=== PATIENT | female | born 1935 | race Caucasian/White ===

== ENCOUNTER → 2017-12-29 11:01 | Outpatient (CLI) | payer MEDICARE, OTHER, SELFPAY ==
[2017-12-29 11:22] LABS: Add Manual Diff / Slide Review NO; Basophils Percent Auto 1.1 % (0-2); Eosinophils Percent Auto 0.4 % (2-4); Hematocrit 42.4 % (36-46); Lymphocytes Percent Auto 24.6 % (25-40); Mean Corpuscular Hemoglobin 29.2 PG (26-34); Mean Corpuscular Volume 88.5 fL (80-100); Monocytes Percent Auto 9.9 % (3-14); Neutrophils Absolute Auto 3400 /uL (3000-5900); Platelet Count 152 X10^3/uL (150-400); Red Blood Cell Count 4.79 X10^6/uL (4.0-5.2); Red Cell Distribution Width 15.8 % (11.6-14.8); White Blood Cell Count 5.3 X10^3/uL (4.5-11.0)
[2017-12-29 11:49] LABS: Alanine Aminotransferase 24 IU/L (9-52); Albumin 4.2 g/dL (3.5-5.0); Albumin Globulin Ratio 1.3 (1.0-2.8); Alkaline Phosphatase 74 U/L (38-126); Aspartate Aminotransferase 16 IU/L (14-36); BUN Creatinine Ratio 22.5 (6-22); Bilirubin Total 1.5 mg/dL (0.2-1.3); Blood Urea Nitrogen 18 mg/dL (7-17); Calcium 9.6 mg/dL (8.4-10.2); Carbon Dioxide 30 mmol/L (22-32); Chloride 101 mmol/L (98-107); Estimated Glomerular Filt Rate > 60.0 mL/min (>60); Globulin 3.3 g/dL (1.7-4.1); Glucose 96 mg/dL (80-110); HEMOLYSIS < 15 (0-50); Potassium 3.7 mmol/L (3.4-5.1); Sodium 143 mmol/L (137-145); Total Protein 7.5 g/dL (6.3-8.2)
[2017-12-29 12:20] LABS: HEMOLYSIS < 15 (0-50); Iron 31 ug/dL (37-170)
[2017-12-29 12:31] LABS: Percent Iron Saturation 8 % (15-50); Total Iron Binding Capacity 368 ug/dL (265-497); Transferrin 289 mg/dL (206-381)
== END ==
PROVIDERS: PCP Family Medicine; Visit Provider Nurse Practitioner Gerontology
DX: D45 Polycythemia vera (principal)
CPT/HCPCS: 36415; 80053; 83540; 83550; 85025

== ENCOUNTER → 2018-04-15 12:59 | Outpatient (CLI) | payer MEDICARE, OTHER, SELFPAY ==
[2018-04-15 13:35] LABS: Add Manual Diff / Slide Review NO; Basophils Percent Auto 0.7 % (0-2); Eosinophils Percent Auto 0.3 % (2-4); Hematocrit 44.2 % (36-46); Hemoglobin 14.6 g/dL (12.0-16.0); Lymphocytes Percent Auto 34.4 % (25-40); Mean Corpuscular HGB Conc 32.9 % (30-36); Mean Corpuscular Hemoglobin 31.7 PG (26-34); Mean Corpuscular Volume 96.4 fL (80-100); Monocytes Percent Auto 8.2 % (3-14); Neutrophils Absolute Auto 2600 /uL (3000-5900); Neutrophils Percent Auto 56.4 % (50-75); Platelet Count 203 X10^3/uL (150-400); Red Blood Cell Count 4.59 X10^6/uL (4.0-5.2); Red Cell Distribution Width 14.6 % (11.6-14.8); White Blood Cell Count 4.7 X10^3/uL (4.5-11.0)
[2018-04-15 14:01] LABS: HEMOLYSIS < 15 (0-50); Iron 77 ug/dL (37-170)
[2018-04-15 14:03] LABS: Alanine Aminotransferase 26 IU/L (9-52); Albumin 4.5 g/dL (3.5-5.0); Albumin Globulin Ratio 1.7 (1.0-2.8); Alkaline Phosphatase 64 U/L (38-126); Aspartate Aminotransferase 22 IU/L (14-36); BUN Creatinine Ratio 27.5 (6-22); Bilirubin Total 1.6 mg/dL (0.2-1.3); Blood Urea Nitrogen 22 mg/dL (7-17); Calcium 9.6 mg/dL (8.4-10.2); Carbon Dioxide 27 mmol/L (22-32); Chloride 103 mmol/L (98-107); Estimated Glomerular Filt Rate > 60.0 mL/min (>60); Globulin 2.7 g/dL (1.7-4.1); Glucose 108 mg/dL (80-110); HEMOLYSIS < 15 (0-50); Potassium 4.1 mmol/L (3.4-5.1); Sodium 142 mmol/L (137-145); Total Protein 7.2 g/dL (6.3-8.2)
[2018-04-15 14:12] LABS: Percent Iron Saturation 23 % (15-50); Total Iron Binding Capacity 335 ug/dL (265-497); Transferrin 273 mg/dL (206-381)
== END ==
PROVIDERS: PCP Family Medicine; Visit Provider Nurse Practitioner Gerontology
DX: D45 Polycythemia vera (principal)
CPT/HCPCS: 36415; 80053; 83540; 83550; 85025

== ENCOUNTER → 2018-06-18 10:19 | Outpatient (CLI) | payer MEDICARE, OTHER, SELFPAY ==
[2018-06-18 12:23] LABS: Magnesium 2.3 mg/dL (1.6-2.3)
[2018-06-18 12:54] LABS: Free T4, Direct Thyroxine 1.74 ng/dL (0.78-2.19)
[2018-06-18 13:08] LABS: Thyroid Stimulating Hormone 0.66 uIU/mL (0.47-4.68)
[2018-06-18 15:12] LABS: Vitamin D 25 Hydroxy (D3) 29.6 ng/mL (30.0-100.0)
== END ==
PROVIDERS: PCP Student in an Organized Health Care Education/Training Program; Visit Provider Student in an Organized Health Care Education/Training Program
DX: E03.9 Hypothyroidism, unspecified (principal); E55.9 Vitamin D deficiency, unspecified; L65.9 Nonscarring hair loss, unspecified
CPT/HCPCS: 36415; 82306; 83735; 84439; 84443

== ENCOUNTER 2019-01-10 05:52 | Emergency (ER) | payer MEDICARE, OTHER, SELFPAY ==
[2019-01-10] VITALS (17 sets, daily range): BP systolic 105–131; BP diastolic 51–69; PULSE 65–94; RESP 15–25; TEMP 36.8; O2SAT 96–98; BMI 23.0
--- NOTE | 2019-01-10 06:22 | DI.RAD.S_ITS ---
PROCEDURE: XR ACUTE ABDOMEN SERIES INDICATIONS: AB PAIN NO BM FOR 3 DAYS TECHNIQUE: One view chest and two views of the abdomen were acquired. COMPARISON: Former[facility], , CHEST 2 VIEW, 12/09/2013, 15:31. FINDINGS: Surgical changes and devices: None. Chest: Lungs are clear. Heart size is normal. No pleural effusions. No pneumoperitoneum. Abdomen: Bowel gas pattern is normal. No suspicious calcifications. Visualized solid organ contours appear normal. Bones: No suspicious bony lesions. IMPRESSION: No acute cardiopulmonary findings. Dictated by: Aspen Su M.D. on 01/10/2019 at 7:04 Approved by: Aspen Su M.D. on 01/10/2019 at 7:04
--- NOTE | 2019-01-10 06:37 | ED.ABDPAIN ---
HPI - Abdominal Pain <DO Christianne Kumar Last Filed: 01/10/19 19:09> General Chief Complaint: Abdominal Pain Stated Complaint: terrible in abdomen and back, no bm for 2 days Time Seen by Provider: 01/10/19 06:14 Source: patient Mode of arrival: ambulatory Limitations: no limitations History of Present Illness HPI narrative: Patient is an 83-year-old female who presents with abdominal pain and epigastric pain ongoing for the last 3 days but she says now it is improved. She denies any radiation of the pain. She denies any chest pain, shortness of breath or nausea. She says she has not had a bowel movement feeding days she did take some Dulcolax and some magnesium which she actually did have a bowel movement with. She has no fevers no MD complaint: abdominal pain Onset (ago): day(s) (3) Pain Consistency: now resolved Location: epigastric Severity: mild Quality: aching Radiation: none Migration to: no migration Relieving factors: nothing Exacerbating factors: nothing Related Data Home Medications Medication Instructions Recorded Confirmed multivitamin [Multiple Vitamins] 1 tab PO QDAY #0 10/22/16 10/08/18 cholecalciferol (vitamin D3) 1,000 unit PO DAILY 10/08/18 10/08/18 [Vitamin D3] magnesium oxide 400 mg PO QMWF 10/08/18 10/08/18 Previous Rx's Medication Instructions Recorded omeprazole 20 mg PO BIDAC #60 tab 01/14/17 hydroxyurea [Hydrea] 500 mg PO QDAY #30 cap 01/05/18 metoprolol tartrate 25 mg tablet 25 mg PO Q DAY #90 tab 06/18/18 triamterene 37.5 1 tab PO QDAY #90 tab 06/18/18 mg-hydrochlorothiazide 25 mg tablet levothyroxine 0.088 mg PO QDAY #90 tab 08/03/18 hydroxyurea 500 mg PO DAILY #30 cap 10/08/18 Allergies Allergy/AdvReac Type Severity Reaction Status Date / Time morphine [MORPHINE] Allergy Unknown ITCHING Verified 01/10/19 08:51 Review of Systems <DO Christianne Kumar Last Filed: 01/10/19 19:09> Review of Systems GENERAL: Denies chills, fatigue, malaise, fever, sweats, travel HEENT: Denies sinus pain, ear pain, sore throat, difficulty swallowing, neck pain RESPIRATORY: Denies dyspnea, cough, wheezing, hemoptysis, sputum. CARDIOVASCULAR: Denies chest pain, palpitations, orthopnea, edema GASTROINTESTINAL: See HPI : Denies dysuria, frequency, incontinence, hematuria, urinary retention, flank pain. MUSCULOSKELETAL: Denies weakness, joint pain, or bony pain SKIN: No rash, no erythema, no pruritus NEUROLOGIC: Denies weakness, dizziness, headache, numbness, change in speech, confusion PSYCHIATRIC: No concerning psychosocial issues. 12 point review of systems is negative except for those stated above and HPI PFSH <Yazmin Hernandez DO - Last Filed: 01/10/19 19:09> Medical History Allergic rhinitis (Chronic) Bunion, left foot (Chronic) Corns (Chronic) Fibromyalgia (Chronic) Hammertoe of left foot (Chronic) Hearing loss (Chronic) Hyperlipidemia (Chronic) Hypertension (Chronic) Hypothyroidism (Chronic) Osteoarthritis (Chronic) Wears glasses (Chronic) Dizziness (Resolved) Subtrochanteric fracture of right femur (Resolved 04/2012) Syncope and collapse (Resolved) Surgical History History of bilateral inguinal hernia repair (Resolved) History of bone marrow biopsy (Resolved 10/11/16) History of colonoscopy with polypectomy (Resolved 03/18/17) History of endoscopy (Resolved 01/14/17) History of hysterectomy (Resolved) History of orthopedic surgery (Resolved 05/10/12) History of surgery (Resolved) History of tonsillectomy and adenoidectomy (Resolved) Family History Father No problems noted. Mother No problems noted. Social History Smoking Status: Never smoker Family History Father No problems noted. Mother No problems noted. Social History Smoking Status: Never smoker Exam <Yazmin Hernandez DO - Last Filed: 01/10/19 19:09> Initial Vital Signs Initial Vital Signs: Vital Signs Pulse Rate 90 01/10/19 06:00 Respiratory Rate 20 01/10/19 06:00 Blood Pressure 131/60 01/10/19 06:00 Pulse Oximetry 97 01/10/19 06:00 GENERAL: Alert pleasant elderly female no acute distress HEENT: Head atraumatic,EOMI, pupils reactive, face symmetric, moist mucous membranes CARDIOVASCULAR: Regular rate and rhythm without murmurs, rubs or gallops. RESPIRATORY: Breath sounds equal bilaterally, no wheezes rales or rhonchi. ABDOMEN: Soft, minimal tenderness in her epigastric area or right upper quadrant pain. She has some mild tenderness in her lower abdomen but no distention no guarding no rebound no localization. EXTREMITIES: Normal range of motion, no clubbing or edema. Neurovascularly intact NEUROLOGICAL: Alert and oriented x4.Normal gait and speech. Cranial nerves II through XII grossly intact. SKIN: Warm, dry, no laceration, no petechiae, no rashes or lesions. <Hugh Singh DO - Last Filed: 01/10/19 15:06> Initial Vital Signs Initial Vital Signs: Vital Signs Pulse Rate 90 01/10/19 06:00 Respiratory Rate 20 01/10/19 06:00 Blood Pressure 131/60 01/10/19 06:00 Pulse Oximetry 97 01/10/19 06:00 Course <Yazmin Hernandez DO - Last Filed: 01/10/19 19:09> Orders Ordered: ED Orders 01/10/19 11:40 CT abdomen pelvis w con Stat Discontinued Medications Aspirin (Aspirin Chew) 324 mg PO NOW ONE Stop: 01/10/19 06:23 Last Admin: 01/10/19 06:50 Dose: 324 mg Heparin Sodium (Porcine) (Heparin) 4,700 unit 80 unit/kg (4700 unit) IV NOW ONE Stop: 01/10/19 08:46 Last Admin: 01/10/19 08:56 Dose: 4,700 unit Sodium Chloride (Normal Saline 0.9%) 1,000 mls @ 150 mls/hr IV CONT NIRMAL Last Infusion: 01/10/19 12:33 Dose: 0 mls/hr Admin: 01/10/19 06:50 Dose: 150 mls/hr Heparin Sodium/Dextrose (Heparin Drip) 25,000 unit in 500 mls @ 20 mls/hr IV CONT NIRMAL; Protocol Last Titration: 01/10/19 14:21 Dose: 0 units/hr, 0 mls/hr Admin: 01/10/19 12:02 Dose: 1,000 units/hr, 20 mls/hr Vital Signs - 8 hr 01/10/19 11:30 01/10/19 11:54 01/10/19 13:18 Pulse Rate 72 71 70 Respiratory Rate 25 H 20 21 Blood Pressure Blood Pressure [Right Arm] 108/55 L 113/57 L 110/51 L Pulse Oximetry 97 97 98 01/10/19 13:45 01/10/19 14:16 Pulse Rate 70 75 Respiratory Rate 22 18 Blood Pressure 115/54 L Blood Pressure [Right Arm] 105/52 L Pulse Oximetry 96 98 <Hugh Singh DO - Last Filed: 01/10/19 15:06> Course Narrative: Patient received in sign-out from our nighttime physician. I performed an independent exam and history. I have no significant additions to Dr. Hernandez's note. 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 Transfer initiated Orders Ordered: ED Orders 01/10/19 11:40 CT abdomen pelvis w con Stat Discontinued Medications Aspirin (Aspirin Chew) 324 mg PO NOW ONE Stop: 01/10/19 06:23 Last Admin: 01/10/19 06:50 Dose: 324 mg Heparin Sodium (Porcine) (Heparin) 4,700 unit 80 unit/kg (4700 unit) IV NOW ONE Stop: 01/10/19 08:46 Last Admin: 01/10/19 08:56 Dose: 4,700 unit Sodium Chloride (Normal Saline 0.9%) 1,000 mls @ 150 mls/hr IV CONT NIRMAL Last Infusion: 01/10/19 12:33 Dose: 0 mls/hr Admin: 01/10/19 06:50 Dose: 150 mls/hr Heparin Sodium/Dextrose (Heparin Drip) 25,000 unit in 500 mls @ 20 mls/hr IV CONT NIRMAL; Protocol Last Titration: 01/10/19 14:21 Dose: 0 units/hr, 0 mls/hr Admin: 01/10/19 12:02 Dose: 1,000 units/hr, 20 mls/hr Consultations Consultation #1: General surgery (Nain) consulted after we received results of US. Recommends transfer for access to higher level of care 0850 - call to [facility] [place]. No beds 0855 - call to Vascular. Call back at 1145 They are happy with heparin, suggest we talk to general surgery. Recommend CT abd/pelvis 0900 call to general surgery, in OR, will call back. 1205 call back. Happy to play a role, but suggest we speak with hospitalist 1205 - hospitalist happy to accept, pending CT results 1225 - findings relayed to , they accept. Images pushed. Patient and family informed. Questions answered. Vital Signs - 8 hr 01/10/19 11:30 01/10/19 11:54 01/10/19 13:18 Pulse Rate 72 71 70 Respiratory Rate 25 H 20 21 Blood Pressure Blood Pressure [Right Arm] 108/55 L 113/57 L 110/51 L Pulse Oximetry 97 97 98 01/10/19 13:45 01/10/19 14:16 Pulse Rate 70 75 Respiratory Rate 22 18 Blood Pressure 115/54 L Blood Pressure [Right Arm] 105/52 L Pulse Oximetry 96 98 MDM - Abdominal Pain <Yazmin Hernandez DO - Last Filed: 01/10/19 19:09> Lab Data Result diagrams: 01/10/19 06:00 01/10/19 06:00 Lab Results 01/10/19 01/10/19 01/10/19 Range/Units 06:00 06:00 08:50 WBC 11.4 H (4.5-11.0) X10^3/uL RBC 4.37 (4.0-5.2) X10^6/uL Hgb 13.4 (12.0-16.0) g/dL Hct 40.2 (36-46) % MCV 91.9 (80-100) fL MCH 30.6 (26-34) PG MCHC 33.3 (30-36) % RDW 13.9 (11.6-14.8) % Plt Count 181 (150-400) X10^3/uL Neut % (Auto) 71.1 (50-75) % Lymph % (Auto) 13.2 L (25-40) % Bracken % (Auto) 15.0 H (3-14) % Eos % (Auto) 0.3 L (2-4) % Baso % (Auto) 0.4 (0-2) % Neut # (Auto) 8100 H (9919-9233) /uL Lymph # (Auto) 1500 (3218-7331) /uL Bracken # (Auto) 1700 H (0-900) /uL Eos # (Auto) 0 (0-450) /uL Baso # (Auto) 0 (0-100) /uL Plt Morphology Comment RBC Morphology Normal morphology PT (10.1-12.7) SECONDS INR (0.9-1.3) APTT (26.4-36.2) SECONDS Sodium 136 L (137-145) mmol/L Potassium 3.6 (3.4-5.1) mmol/L Chloride 97 L (98-107) mmol/L Carbon Dioxide 28 (22-32) mmol/L BUN 33 H (7-17) mg/dL Creatinine 1.00 (0.52-1.04) mg/dL Estimated GFR 53.1 L (>60) mL/min BUN/Creatinine Ratio 33.0 H (6-22) Glucose 146 H (80-110) mg/dL Lactate 1.0 (0.7-2.1) mmol/L Calcium 10.5 H (8.4-10.2) mg/dL Total Bilirubin 2.5 H (0.2-1.3) mg/dL AST 39 H (14-36) IU/L ALT 39 (9-52) IU/L Alkaline Phosphatase 220 H (38-126) U/L Total Creatine Kinase 31 (30-135) U/L CK-MB (CK-2) TNP CK-MB (CK-2) Rel Index TNP Troponin I < 0.012 (0.01-0.034) ng/mL Total Protein 7.4 (6.3-8.2) g/dL Albumin 4.1 (3.5-5.0) g/dL Globulin 3.3 (1.7-4.1) g/dL Albumin/Globulin Ratio 1.2 (1.0-2.8) Lipase 222 (23-300) U/L 01/10/19 Range/Units 08:50 WBC (4.5-11.0) X10^3/uL RBC (4.0-5.2) X10^6/uL Hgb (12.0-16.0) g/dL Hct (36-46) % MCV (80-100) fL MCH (26-34) PG MCHC (30-36) % RDW (11.6-14.8) % Plt Count (150-400) X10^3/uL Neut % (Auto) (50-75) % Lymph % (Auto) (25-40) % Bracken % (Auto) (3-14) % Eos % (Auto) (2-4) % Baso % (Auto) (0-2) % Neut # (Auto) (7575-5475) /uL Lymph # (Auto) (3712-2486) /uL Bracken # (Auto) (0-900) /uL Eos # (Auto) (0-450) /uL Baso # (Auto) (0-100) /uL Plt Morphology Comment RBC Morphology PT 15.4 H (10.1-12.7) SECONDS INR 1.3 (0.9-1.3) APTT 32 (26.4-36.2) SECONDS Sodium (137-145) mmol/L Potassium (3.4-5.1) mmol/L Chloride (98-107) mmol/L Carbon Dioxide (22-32) mmol/L BUN (7-17) mg/dL Creatinine (0.52-1.04) mg/dL Estimated GFR (>60) mL/min BUN/Creatinine Ratio (6-22) Glucose (80-110) mg/dL Lactate (0.7-2.1) mmol/L Calcium (8.4-10.2) mg/dL Total Bilirubin (0.2-1.3) mg/dL AST (14-36) IU/L ALT (9-52) IU/L Alkaline Phosphatase (38-126) U/L Total Creatine Kinase (30-135) U/L CK-MB (CK-2) CK-MB (CK-2) Rel Index Troponin I (0.01-0.034) ng/mL Total Protein (6.3-8.2) g/dL Albumin (3.5-5.0) g/dL Globulin (1.7-4.1) g/dL Albumin/Globulin Ratio (1.0-2.8) Lipase (23-300) U/L ECG Data Attestation: I personally reviewed and interpreted this ECG as follows: Prior ECG tracings: available for review Interpretation: Sinus rhythm rate 90 to OH interval 149 nonpathologic Q-wave noted in lead 3 no other bleeding noted. Slight ST depression in the [address] elevation <Hugh Singh DO - Last Filed: 01/10/19 15:06> Lab Data Lab Results 01/10/19 01/10/19 01/10/19 Range/Units 06:00 06:00 08:50 WBC 11.4 H (4.5-11.0) X10^3/uL RBC 4.37 (4.0-5.2) X10^6/uL Hgb 13.4 (12.0-16.0) g/dL Hct 40.2 (36-46) % MCV 91.9 (80-100) fL MCH 30.6 (26-34) PG MCHC 33.3 (30-36) % RDW 13.9 (11.6-14.8) % Plt Count 181 (150-400) X10^3/uL Neut % (Auto) 71.1 (50-75) % Lymph % (Auto) 13.2 L (25-40) % Bracken % (Auto) 15.0 H (3-14) % Eos % (Auto) 0.3 L (2-4) % Baso % (Auto) 0.4 (0-2) % Neut # (Auto) 8100 H (8569-2204) /uL Lymph # (Auto) 1500 (1039-6772) /uL Bracken # (Auto) 1700 H (0-900) /uL Eos # (Auto) 0 (0-450) /uL Baso # (Auto) 0 (0-100) /uL Plt Morphology Comment RBC Morphology Normal morphology PT (10.1-12.7) SECONDS INR (0.9-1.3) APTT (26.4-36.2) SECONDS Sodium 136 L (137-145) mmol/L Potassium 3.6 (3.4-5.1) mmol/L Chloride 97 L (98-107) mmol/L Carbon Dioxide 28 (22-32) mmol/L BUN 33 H (7-17) mg/dL Creatinine 1.00 (0.52-1.04) mg/dL Estimated GFR 53.1 L (>60) mL/min BUN/Creatinine Ratio 33.0 H (6-22) Glucose 146 H (80-110) mg/dL Lactate 1.0 (0.7-2.1) mmol/L Calcium 10.5 H (8.4-10.2) mg/dL Total Bilirubin 2.5 H (0.2-1.3) mg/dL AST 39 H (14-36) IU/L ALT 39 (9-52) IU/L Alkaline Phosphatase 220 H (38-126) U/L Total Creatine Kinase 31 (30-135) U/L CK-MB (CK-2) TNP CK-MB (CK-2) Rel Index TNP Troponin I < 0.012 (0.01-0.034) ng/mL Total Protein 7.4 (6.3-8.2) g/dL Albumin 4.1 (3.5-5.0) g/dL Globulin 3.3 (1.7-4.1) g/dL Albumin/Globulin Ratio 1.2 (1.0-2.8) Lipase 222 (23-300) U/L / Range/Units 08:50 WBC (4.5-11.0) X10^3/uL RBC (4.0-5.2) X10^6/uL Hgb (12.0-16.0) g/dL Hct (36-46) % MCV (80-100) fL MCH (26-34) PG MCHC (30-36) % RDW (11.6-14.8) % Plt Count (150-400) X10^3/uL Neut % (Auto) (50-75) % Lymph % (Auto) (25-40) % Bracken % (Auto) (3-14) % Eos % (Auto) (2-4) % Baso % (Auto) (0-2) % Neut # (Auto) (2440-6354) /uL Lymph # (Auto) (2497-7405) /uL Bracken # (Auto) (0-900) /uL Eos # (Auto) (0-450) /uL Baso # (Auto) (0-100) /uL Plt Morphology Comment RBC Morphology PT 15.4 H (10.1-12.7) SECONDS INR 1.3 (0.9-1.3) APTT 32 (26.4-36.2) SECONDS Sodium (137-145) mmol/L Potassium (3.4-5.1) mmol/L Chloride (98-107) mmol/L Carbon Dioxide (22-32) mmol/L BUN (7-17) mg/dL Creatinine (0.52-1.04) mg/dL Estimated GFR (>60) mL/min BUN/Creatinine Ratio (6-22) Glucose (80-110) mg/dL Lactate (0.7-2.1) mmol/L Calcium (8.4-10.2) mg/dL Total Bilirubin (0.2-1.3) mg/dL AST (14-36) IU/L ALT (9-52) IU/L Alkaline Phosphatase (38-126) U/L Total Creatine Kinase (30-135) U/L CK-MB (CK-2) CK-MB (CK-2) Rel Index Troponin I (0.01-0.034) ng/mL Total Protein (6.3-8.2) g/dL Albumin (3.5-5.0) g/dL Globulin (1.7-4.1) g/dL Albumin/Globulin Ratio (1.0-2.8) Lipase (23-300) U/L Imaging Data US - abdomen: My impression: [place] [address] Ultrasound Report Signed Patient: Neena Martell [facility]#: [id number] : 1935cct:[id number] Age/Sex: 83 / FDate of Service: 01/10/19 Loc: ED Accession Number: [id number] Procedure: US abdomen complete Ordering Provider: Hugh Singh D.O. PROCEDURE: US ABDOMEN COMPLETE INDICATIONS: SEVERE EPIGASTRIC PAIN TECHNIQUE: Real-time scanning was performed of the abdominal and retroperitoneal organs, with image documentation. COMPARISON: None. FINDINGS: Liver: Liver is normal in size and homogeneous in echotexture. The central portal vein and the main left and right branches of the portal vein are thrombosed. Gallbladder: The gallbladder wall measures 2.2 mm in diameter. No stones, sludge, pericholecystic fluid, or sonographic Ortega sign. Biliary ducts: Intrahepatic bile ducts are non-dilated. Extrahepatic bile duct caliber measures 5.5 mm. Normal is 6-7 mm or less in diameter, or 10 mm or less post-cholecystectomy. Pancreas: Visualized portions of the pancreas are sonographically normal. Spleen: The spleen measures 13.2 cm in length. Where visualized the splenic vein appears thrombosed. Kidneys: Kidneys are normal in size and echotexture. Right kidney measures 10.0 cm long; left kidney measures 11.5 cm long. No hydronephrosis or nephrolithiasis. No solid masses. Aorta: Visualized aorta is normal in caliber at less than 3 cm. Iliacs: The iliac arteries are not visualized. IVC: Intrahepatic inferior vena cava is patent. Miscellaneous: No free abdominal fluid. IMPRESSION: 1. Portal vein and splenic vein thrombosis. No definite cavernous transformation is visualized suggesting this may be an acute or subacute finding. These findings were discussed with Dr. Singh at 8:05 AM on 01/10/19. 2. No cholelithiasis or findings to suggest choledocholithiasis or acute cholecystitis. Dictated by: Aspen Su M.D. on 01/10/2019 at 7:59 Approved by: Aspen Su M.D. on 01/10/2019 at 8:05 CT scan - abdomen: Radiologist's impression: [place] [address] CT Scan Report Signed Patient: Neena Martell MMR#: [id number] : 6Acct:[id number] Age/Sex: 83 / FDate of Service: 01/10/19 Loc: ED Accession Number: [id number] Procedure: CT abdomen pelvis w con Ordering Provider: Hugh Singh D.O. PROCEDURE: CT ABDOMEN PELVIS W CON INDICATIONS: abdominal pain, per vascular at [facility] TECHNIQUE: After the administration of intravenous contrast, 5 mm thick sections acquired from the diaphragm to the symphysis. 5 mm coronal and sagittal reformats were acquired. For radiation dose reduction, the following was used: automated exposure control, adjustment of mA and/or kV according to patient size. COMPARISON: None. FINDINGS: Image quality: Excellent. ABDOMEN: Lung bases: A 5 mm diameter nodule is present at the right lung base (series 3, image 6). Heart size is normal. Solid organs: The liver demonstrates overall normal size and enhancement. A low density circumscribed lesion is present within the left hepatic lobe which may represent a simple hepatic cyst. The portal vein is enlarged and thrombosed throughout its course. The splenic vein and the SMV are enlarged and thrombosed as well. Subtle enhancement is present along the periphery of the thrombus. Subtle fat stranding is present at the yadira hepatis. The spleen measures 10.5 cm in length. Wedge-shaped hypodensities are present within the spleen suggesting infarct. The pancreas demonstrates normal enhancement. The main pancreatic and accessory pancreatic ducts are prominent and there is mild dilatation of the accessory pancreatic duct up to 6 mm in diameter. The kidneys demonstrate symmetric size and enhancement. No hydronephrosis. No adrenal gland nodules. Peritoneum and bowel: Bowel loops demonstrate normal wall thickness and overall caliber. A large amount stool is present within the rectosigmoid. There are scattered sigmoid diverticula. No evidence for diverticulitis. No free fluid or air. Nodes and vessels: No retroperitoneal or mesenteric adenopathy by size criteria. Aorta and inferior vena cava are normal in size. Dense atheromatous calcification is present throughout the abdominal aorta. Exophytic plaque measuring 6 mm in diameter is present along the posterior aspect of the distal descending thoracic aorta. Miscellaneous: No ventral hernias. PELVIS: Genitourinary: Bladder wall thickness is normal. The uterus and ovaries are not visualized and may be surgically absent. Miscellaneous: No inguinal hernias or adenopathy. Bones: No suspicious bony lesions. No vertebral body compression fractures. IMPRESSION: 1. Enlarged, thrombosed portal vein, splenic vein, and superior mesenteric vein. Subtle enhancement is present around the periphery of this thrombus. It is unclear whether this represents minimal flow of contrast-enhanced blood around the periphery of the thrombus, or may represent enhancement in the setting of tumor thrombus. Of note, no definite primary neoplasm is visualized. These findings were discussed with the GOLDIE Oscar at 11:30 AM on 01/10/19. 2. 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 3. Fecal impaction. No upstream obstruction at this time. 4. Diverticulosis. No acute diverticulitis. Dictated by: Aspen Su M.D. on 01/10/2019 at 11:26 Approved by: Aspen Su M.D. on 01/10/2019 at 11:39 <Hugh Singh DO - Last Filed: 01/10/19 15:06> Critical Care Time: Yes Total Critical Care Time: 30 Attestation: The high probability of a clinically significant, sudden or life threatening deterioration of the [cardiovascular] system(s) required my full and direct attention, intervention and personal management. The aggregate critical care time was [30] minutes. This time is in addition to time spent performing reported procedures but includes the following: [x] Data Review and interpretation [x] Patient assessment and monitoring of vital signs [x] Documentation [x] Medication orders and management Discharge Plan Departure Patient Disposition: [facility] Clinical Impression: Portal vein thrombosis, Acute thrombosis of splenic vein Discharge Date/Time: 01/10/19 14:35 Interventions: ED Discharge Assessment Last Done: 01/10/19 14:16 Prescriptions: No Action multivitamin [Multiple Vitamins] 1 EACH tablet 1 tab PO QDAY Qty: 0 RF: 0 omeprazole 20 MG tablet,delayed release (DR/EC) 20 mg PO BIDAC Qty: 60 RF: 4 levothyroxine 88 mcg tablet 0.088 mg PO QDAY Qty: 90 RF: 3 metoprolol tartrate 25 mg tablet 25 mg PO Q DAY Qty: 90 RF: 3 triamterene-hydrochlorothiazid 37.5-25 mg tablet 1 tab PO QDAY Qty: 90 RF: 3 hydroxyurea [Hydrea] 500 MG capsule 500 mg PO QDAY Qty: 30 RF: 2 cholecalciferol (vitamin D3) [Vitamin D3] 1,000 unit Capsule 1,000 unit PO DAILY RF: 0 magnesium oxide 400 mg Capsule 400 mg PO QMWF RF: 0 hydroxyurea 500 mg Capsule 500 mg PO DAILY Qty: 30 RF: 11 Referrals: Ivan Gurrola MD [Primary Care Provider] -
[2019-01-10 06:38] LABS: Alanine Aminotransferase 39 IU/L (9-52); Albumin 4.1 g/dL (3.5-5.0); Albumin Globulin Ratio 1.2 (1.0-2.8); Alkaline Phosphatase 220 U/L (38-126); Aspartate Aminotransferase 39 IU/L (14-36); Bilirubin Total 2.5 mg/dL (0.2-1.3); Blood Urea Nitrogen 33 mg/dL (7-17); Calcium 10.5 mg/dL (8.4-10.2); Carbon Dioxide 28 mmol/L (22-32); Chloride 97 mmol/L (98-107); Creatine Kinase 31 U/L (30-135); Estimated Glomerular Filt Rate 53.1 mL/min (>60); Globulin 3.3 g/dL (1.7-4.1); Glucose 146 mg/dL (80-110); HEMOLYSIS < 15 (0-50); Lipase 222 U/L (23-300); Potassium 3.6 mmol/L (3.4-5.1); Sodium 136 mmol/L (137-145); Total Protein 7.4 g/dL (6.3-8.2)
--- NOTE | 2019-01-10 06:41 | ED_ITS ---
HPI - Abdominal Pain <DO Christianne Kumar Last Filed: 01/10/19 19:09> General Chief Complaint: Abdominal Pain Stated Complaint: terrible in abdomen and back, no bm for 2 days Time Seen by Provider: 01/10/19 06:14 Source: patient Mode of arrival: ambulatory Limitations: no limitations History of Present Illness HPI narrative: Patient is an 83-year-old female who presents with abdominal pain and epigastric pain ongoing for the last 3 days but she says now it is improved. She denies any radiation of the pain. She denies any chest pain, shortness of breath or nausea. She says she has not had a bowel movement feeding days she did take some Dulcolax and some magnesium which she actually did have a bowel movement with. She has no fevers no MD complaint: abdominal pain Onset (ago): day(s) (3) Pain Consistency: now resolved Location: epigastric Severity: mild Quality: aching Radiation: none Migration to: no migration Relieving factors: nothing Exacerbating factors: nothing Related Data Home Medications Medication Instructions Recorded Confirmed multivitamin [Multiple Vitamins] 1 tab PO QDAY #0 10/22/16 10/08/18 cholecalciferol (vitamin D3) 1,000 unit PO DAILY 10/08/18 10/08/18 [Vitamin D3] magnesium oxide 400 mg PO QMWF 10/08/18 10/08/18 Previous Rx's Medication Instructions Recorded omeprazole 20 mg PO BIDAC #60 tab 01/14/17 hydroxyurea [Hydrea] 500 mg PO QDAY #30 cap 01/05/18 metoprolol tartrate 25 mg tablet 25 mg PO Q DAY #90 tab 06/18/18 triamterene 37.5 1 tab PO QDAY #90 tab 06/18/18 mg-hydrochlorothiazide 25 mg tablet levothyroxine 0.088 mg PO QDAY #90 tab 08/03/18 hydroxyurea 500 mg PO DAILY #30 cap 10/08/18 Allergies Allergy/AdvReac Type Severity Reaction Status Date / Time morphine [MORPHINE] Allergy Unknown ITCHING Verified 01/10/19 08:51 Review of Systems <DO Christianne Kumar Last Filed: 01/10/19 19:09> Review of Systems GENERAL: Denies chills, fatigue, malaise, fever, sweats, travel HEENT: Denies sinus pain, ear pain, sore throat, difficulty swallowing, neck pain RESPIRATORY: Denies dyspnea, cough, wheezing, hemoptysis, sputum. CARDIOVASCULAR: Denies chest pain, palpitations, orthopnea, edema GASTROINTESTINAL: See HPI : Denies dysuria, frequency, incontinence, hematuria, urinary retention, flank pain. MUSCULOSKELETAL: Denies weakness, joint pain, or bony pain SKIN: No rash, no erythema, no pruritus NEUROLOGIC: Denies weakness, dizziness, headache, numbness, change in speech, confusion PSYCHIATRIC: No concerning psychosocial issues. 12 point review of systems is negative except for those stated above and HPI PFSH <Yazmin Hernandez DO - Last Filed: 01/10/19 19:09> Medical History Allergic rhinitis (Chronic) Bunion, left foot (Chronic) Corns (Chronic) Fibromyalgia (Chronic) Hammertoe of left foot (Chronic) Hearing loss (Chronic) Hyperlipidemia (Chronic) Hypertension (Chronic) Hypothyroidism (Chronic) Osteoarthritis (Chronic) Wears glasses (Chronic) Dizziness (Resolved) Subtrochanteric fracture of right femur (Resolved 04/2012) Syncope and collapse (Resolved) Surgical History History of bilateral inguinal hernia repair (Resolved) History of bone marrow biopsy (Resolved 10/11/16) History of colonoscopy with polypectomy (Resolved 03/18/17) History of endoscopy (Resolved 01/14/17) History of hysterectomy (Resolved) History of orthopedic surgery (Resolved 05/10/12) History of surgery (Resolved) History of tonsillectomy and adenoidectomy (Resolved) Family History Father No problems noted. Mother No problems noted. Social History Smoking Status: Never smoker Family History Father No problems noted. Mother No problems noted. Social History Smoking Status: Never smoker Exam <Yazmin Hernandez DO - Last Filed: 01/10/19 19:09> Initial Vital Signs Initial Vital Signs: Vital Signs Pulse Rate 90 01/10/19 06:00 Respiratory Rate 20 01/10/19 06:00 Blood Pressure 131/60 01/10/19 06:00 Pulse Oximetry 97 01/10/19 06:00 GENERAL: Alert pleasant elderly female no acute distress HEENT: Head atraumatic,EOMI, pupils reactive, face symmetric, moist mucous membranes CARDIOVASCULAR: Regular rate and rhythm without murmurs, rubs or gallops. RESPIRATORY: Breath sounds equal bilaterally, no wheezes rales or rhonchi. ABDOMEN: Soft, minimal tenderness in her epigastric area or right upper quadrant pain. She has some mild tenderness in her lower abdomen but no distention no guarding no rebound no localization. EXTREMITIES: Normal range of motion, no clubbing or edema. Neurovascularly intact NEUROLOGICAL: Alert and oriented x4.Normal gait and speech. Cranial nerves II through XII grossly intact. SKIN: Warm, dry, no laceration, no petechiae, no rashes or lesions. <Hugh Singh DO - Last Filed: 01/10/19 15:06> Initial Vital Signs Initial Vital Signs: Vital Signs Pulse Rate 90 01/10/19 06:00 Respiratory Rate 20 01/10/19 06:00 Blood Pressure 131/60 01/10/19 06:00 Pulse Oximetry 97 01/10/19 06:00 Course <Yazmin Hernandez DO - Last Filed: 01/10/19 19:09> Orders Ordered: ED Orders 01/10/19 11:40 CT abdomen pelvis w con Stat Discontinued Medications Aspirin (Aspirin Chew) 324 mg PO NOW ONE Stop: 01/10/19 06:23 Last Admin: 01/10/19 06:50 Dose: 324 mg Heparin Sodium (Porcine) (Heparin) 4,700 unit 80 unit/kg (4700 unit) IV NOW ONE Stop: 01/10/19 08:46 Last Admin: 01/10/19 08:56 Dose: 4,700 unit Sodium Chloride (Normal Saline 0.9%) 1,000 mls @ 150 mls/hr IV CONT NIRMAL Last Infusion: 01/10/19 12:33 Dose: 0 mls/hr Admin: 01/10/19 06:50 Dose: 150 mls/hr Heparin Sodium/Dextrose (Heparin Drip) 25,000 unit in 500 mls @ 20 mls/hr IV CONT NIRMAL; Protocol Last Titration: 01/10/19 14:21 Dose: 0 units/hr, 0 mls/hr Admin: 01/10/19 12:02 Dose: 1,000 units/hr, 20 mls/hr Vital Signs - 8 hr 01/10/19 11:30 01/10/19 11:54 01/10/19 13:18 Pulse Rate 72 71 70 Respiratory Rate 25 H 20 21 Blood Pressure Blood Pressure [Right Arm] 108/55 L 113/57 L 110/51 L Pulse Oximetry 97 97 98 01/10/19 13:45 01/10/19 14:16 Pulse Rate 70 75 Respiratory Rate 22 18 Blood Pressure 115/54 L Blood Pressure [Right Arm] 105/52 L Pulse Oximetry 96 98 <Hugh Singh DO - Last Filed: 01/10/19 15:06> Course Narrative: Patient received in sign-out from our nighttime physician. I performed an independent exam and history. I have no significant additions to Dr. Hernandez's note. 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 Transfer initiated Orders Ordered: ED Orders 01/10/19 11:40 CT abdomen pelvis w con Stat Discontinued Medications Aspirin (Aspirin Chew) 324 mg PO NOW ONE Stop: 01/10/19 06:23 Last Admin: 01/10/19 06:50 Dose: 324 mg Heparin Sodium (Porcine) (Heparin) 4,700 unit 80 unit/kg (4700 unit) IV NOW ONE Stop: 01/10/19 08:46 Last Admin: 01/10/19 08:56 Dose: 4,700 unit Sodium Chloride (Normal Saline 0.9%) 1,000 mls @ 150 mls/hr IV CONT NIRMAL Last Infusion: 01/10/19 12:33 Dose: 0 mls/hr Admin: 01/10/19 06:50 Dose: 150 mls/hr Heparin Sodium/Dextrose (Heparin Drip) 25,000 unit in 500 mls @ 20 mls/hr IV CONT NIRMAL; Protocol Last Titration: 01/10/19 14:21 Dose: 0 units/hr, 0 mls/hr Admin: 01/10/19 12:02 Dose: 1,000 units/hr, 20 mls/hr Consultations Consultation #1: General surgery ([facility]) consulted after we received results of US. Recommends transfer for access to higher level of care 0850 - call to [facility]. No beds 0855 - call to [facility]. Call back at 1145 They are happy with heparin, suggest we talk to general surgery. Recommend CT abd/pelvis 0900 call to general surgery, in OR, will call back. 1205 call back. Happy to play a role, but suggest we speak with hospitalist 1205 - hospitalist happy to accept, pending CT results 1225 - findings relayed to , they accept. Images pushed. Patient and family informed. Questions answered. Vital Signs - 8 hr 01/10/19 11:30 01/10/19 11:54 01/10/19 13:18 Pulse Rate 72 71 70 Respiratory Rate 25 H 20 21 Blood Pressure Blood Pressure [Right Arm] 108/55 L 113/57 L 110/51 L Pulse Oximetry 97 97 98 01/10/19 13:45 01/10/19 14:16 Pulse Rate 70 75 Respiratory Rate 22 18 Blood Pressure 115/54 L Blood Pressure [Right Arm] 105/52 L Pulse Oximetry 96 98 MDM - Abdominal Pain <Yazmin Hernandez DO - Last Filed: 01/10/19 19:09> Lab Data Result diagrams: 01/10/19 06:00 01/10/19 06:00 Lab Results 01/10/19 01/10/19 01/10/19 Range/Units 06:00 06:00 08:50 WBC 11.4 H (4.5-11.0) X10^3/uL RBC 4.37 (4.0-5.2) X10^6/uL Hgb 13.4 (12.0-16.0) g/dL Hct 40.2 (36-46) % MCV 91.9 (80-100) fL MCH 30.6 (26-34) PG MCHC 33.3 (30-36) % RDW 13.9 (11.6-14.8) % Plt Count 181 (150-400) X10^3/uL Neut % (Auto) 71.1 (50-75) % Lymph % (Auto) 13.2 L (25-40) % Cottle % (Auto) 15.0 H (3-14) % Eos % (Auto) 0.3 L (2-4) % Baso % (Auto) 0.4 (0-2) % Neut # (Auto) 8100 H (6793-6548) /uL Lymph # (Auto) 1500 (3161-2932) /uL Cottle # (Auto) 1700 H (0-900) /uL Eos # (Auto) 0 (0-450) /uL Baso # (Auto) 0 (0-100) /uL Plt Morphology Comment RBC Morphology Normal morphology PT (10.1-12.7) SECONDS INR (0.9-1.3) APTT (26.4-36.2) SECONDS Sodium 136 L (137-145) mmol/L Potassium 3.6 (3.4-5.1) mmol/L Chloride 97 L (98-107) mmol/L Carbon Dioxide 28 (22-32) mmol/L BUN 33 H (7-17) mg/dL Creatinine 1.00 (0.52-1.04) mg/dL Estimated GFR 53.1 L (>60) mL/min BUN/Creatinine Ratio 33.0 H (6-22) Glucose 146 H (80-110) mg/dL Lactate 1.0 (0.7-2.1) mmol/L Calcium 10.5 H (8.4-10.2) mg/dL Total Bilirubin 2.5 H (0.2-1.3) mg/dL AST 39 H (14-36) IU/L ALT 39 (9-52) IU/L Alkaline Phosphatase 220 H (38-126) U/L Total Creatine Kinase 31 (30-135) U/L CK-MB (CK-2) TNP CK-MB (CK-2) Rel Index TNP Troponin I < 0.012 (0.01-0.034) ng/mL Total Protein 7.4 (6.3-8.2) g/dL Albumin 4.1 (3.5-5.0) g/dL Globulin 3.3 (1.7-4.1) g/dL Albumin/Globulin Ratio 1.2 (1.0-2.8) Lipase 222 (23-300) U/L 01/10/19 Range/Units 08:50 WBC (4.5-11.0) X10^3/uL RBC (4.0-5.2) X10^6/uL Hgb (12.0-16.0) g/dL Hct (36-46) % MCV (80-100) fL MCH (26-34) PG MCHC (30-36) % RDW (11.6-14.8) % Plt Count (150-400) X10^3/uL Neut % (Auto) (50-75) % Lymph % (Auto) (25-40) % Cottle % (Auto) (3-14) % Eos % (Auto) (2-4) % Baso % (Auto) (0-2) % Neut # (Auto) (5556-6882) /uL Lymph # (Auto) (9533-2058) /uL Cottle # (Auto) (0-900) /uL Eos # (Auto) (0-450) /uL Baso # (Auto) (0-100) /uL Plt Morphology Comment RBC Morphology PT 15.4 H (10.1-12.7) SECONDS INR 1.3 (0.9-1.3) APTT 32 (26.4-36.2) SECONDS Sodium (137-145) mmol/L Potassium (3.4-5.1) mmol/L Chloride (98-107) mmol/L Carbon Dioxide (22-32) mmol/L BUN (7-17) mg/dL Creatinine (0.52-1.04) mg/dL Estimated GFR (>60) mL/min BUN/Creatinine Ratio (6-22) Glucose (80-110) mg/dL Lactate (0.7-2.1) mmol/L Calcium (8.4-10.2) mg/dL Total Bilirubin (0.2-1.3) mg/dL AST (14-36) IU/L ALT (9-52) IU/L Alkaline Phosphatase (38-126) U/L Total Creatine Kinase (30-135) U/L CK-MB (CK-2) CK-MB (CK-2) Rel Index Troponin I (0.01-0.034) ng/mL Total Protein (6.3-8.2) g/dL Albumin (3.5-5.0) g/dL Globulin (1.7-4.1) g/dL Albumin/Globulin Ratio (1.0-2.8) Lipase (23-300) U/L ECG Data Attestation: I personally reviewed and interpreted this ECG as follows: Prior ECG tracings: available for review Interpretation: Sinus rhythm rate 90 to NJ interval 149 nonpathologic Q-wave noted in lead 3 no other bleeding noted. Slight ST depression in the [address] elevation <Hugh Singh DO - Last Filed: 01/10/19 15:06> Lab Data Lab Results 01/10/19 01/10/19 01/10/19 Range/Units 06:00 06:00 08:50 WBC 11.4 H (4.5-11.0) X10^3/uL RBC 4.37 (4.0-5.2) X10^6/uL Hgb 13.4 (12.0-16.0) g/dL Hct 40.2 (36-46) % MCV 91.9 (80-100) fL MCH 30.6 (26-34) PG MCHC 33.3 (30-36) % RDW 13.9 (11.6-14.8) % Plt Count 181 (150-400) X10^3/uL Neut % (Auto) 71.1 (50-75) % Lymph % (Auto) 13.2 L (25-40) % Cottle % (Auto) 15.0 H (3-14) % Eos % (Auto) 0.3 L (2-4) % Baso % (Auto) 0.4 (0-2) % Neut # (Auto) 8100 H (2469-1662) /uL Lymph # (Auto) 1500 (2290-7189) /uL Cottle # (Auto) 1700 H (0-900) /uL Eos # (Auto) 0 (0-450) /uL Baso # (Auto) 0 (0-100) /uL Plt Morphology Comment RBC Morphology Normal morphology PT (10.1-12.7) SECONDS INR (0.9-1.3) APTT (26.4-36.2) SECONDS Sodium 136 L (137-145) mmol/L Potassium 3.6 (3.4-5.1) mmol/L Chloride 97 L (98-107) mmol/L Carbon Dioxide 28 (22-32) mmol/L BUN 33 H (7-17) mg/dL Creatinine 1.00 (0.52-1.04) mg/dL Estimated GFR 53.1 L (>60) mL/min BUN/Creatinine Ratio 33.0 H (6-22) Glucose 146 H (80-110) mg/dL Lactate 1.0 (0.7-2.1) mmol/L Calcium 10.5 H (8.4-10.2) mg/dL Total Bilirubin 2.5 H (0.2-1.3) mg/dL AST 39 H (14-36) IU/L ALT 39 (9-52) IU/L Alkaline Phosphatase 220 H (38-126) U/L Total Creatine Kinase 31 (30-135) U/L CK-MB (CK-2) TNP CK-MB (CK-2) Rel Index TNP Troponin I < 0.012 (0.01-0.034) ng/mL Total Protein 7.4 (6.3-8.2) g/dL Albumin 4.1 (3.5-5.0) g/dL Globulin 3.3 (1.7-4.1) g/dL Albumin/Globulin Ratio 1.2 (1.0-2.8) Lipase 222 (23-300) U/L / Range/Units 08:50 WBC (4.5-11.0) X10^3/uL RBC (4.0-5.2) X10^6/uL Hgb (12.0-16.0) g/dL Hct (36-46) % MCV (80-100) fL MCH (26-34) PG MCHC (30-36) % RDW (11.6-14.8) % Plt Count (150-400) X10^3/uL Neut % (Auto) (50-75) % Lymph % (Auto) (25-40) % Cottle % (Auto) (3-14) % Eos % (Auto) (2-4) % Baso % (Auto) (0-2) % Neut # (Auto) (7091-5764) /uL Lymph # (Auto) (4156-1118) /uL Cottle # (Auto) (0-900) /uL Eos # (Auto) (0-450) /uL Baso # (Auto) (0-100) /uL Plt Morphology Comment RBC Morphology PT 15.4 H (10.1-12.7) SECONDS INR 1.3 (0.9-1.3) APTT 32 (26.4-36.2) SECONDS Sodium (137-145) mmol/L Potassium (3.4-5.1) mmol/L Chloride (98-107) mmol/L Carbon Dioxide (22-32) mmol/L BUN (7-17) mg/dL Creatinine (0.52-1.04) mg/dL Estimated GFR (>60) mL/min BUN/Creatinine Ratio (6-22) Glucose (80-110) mg/dL Lactate (0.7-2.1) mmol/L Calcium (8.4-10.2) mg/dL Total Bilirubin (0.2-1.3) mg/dL AST (14-36) IU/L ALT (9-52) IU/L Alkaline Phosphatase (38-126) U/L Total Creatine Kinase (30-135) U/L CK-MB (CK-2) CK-MB (CK-2) Rel Index Troponin I (0.01-0.034) ng/mL Total Protein (6.3-8.2) g/dL Albumin (3.5-5.0) g/dL Globulin (1.7-4.1) g/dL Albumin/Globulin Ratio (1.0-2.8) Lipase (23-300) U/L Imaging Data US - abdomen: My impression: [place] [address] Ultrasound Report Signed Patient: Neena Martell [facility]#: [id number] : 1935cct:[id number] Age/Sex: 83 / FDate of Service: 01/10/19 Loc: ED Accession Number: [id number] Procedure: US abdomen complete Ordering Provider: Hugh Singh D.O. PROCEDURE: US ABDOMEN COMPLETE INDICATIONS: SEVERE EPIGASTRIC PAIN TECHNIQUE: Real-time scanning was performed of the abdominal and retroperitoneal organs, with image documentation. COMPARISON: None. FINDINGS: Liver: Liver is normal in size and homogeneous in echotexture. The central portal vein and the main left and right branches of the portal vein are thrombosed. Gallbladder: The gallbladder wall measures 2.2 mm in diameter. No stones, sludge, pericholecystic fluid, or sonographic Ortega sign. Biliary ducts: Intrahepatic bile ducts are non-dilated. Extrahepatic bile duct caliber measures 5.5 mm. Normal is 6-7 mm or less in diameter, or 10 mm or less post-cholecystectomy. Pancreas: Visualized portions of the pancreas are sonographically normal. Spleen: The spleen measures 13.2 cm in length. Where visualized the splenic vein appears thrombosed. Kidneys: Kidneys are normal in size and echotexture. Right kidney measures 10.0 cm long; left kidney measures 11.5 cm long. No hydronephrosis or nephrolithiasis. No solid masses. Aorta: Visualized aorta is normal in caliber at less than 3 cm. Iliacs: The iliac arteries are not visualized. IVC: Intrahepatic inferior vena cava is patent. Miscellaneous: No free abdominal fluid. IMPRESSION: 1. Portal vein and splenic vein thrombosis. No definite cavernous transformation is visualized suggesting this may be an acute or subacute finding. These findings were discussed with Dr. Singh at 8:05 AM on 01/10/19. 2. No cholelithiasis or findings to suggest choledocholithiasis or acute cholecystitis. Dictated by: Aspen Su M.D. on 01/10/2019 at 7:59 Approved by: Aspen Su M.D. on 01/10/2019 at 8:05 CT scan - abdomen: Radiologist's impression: [place] [address] CT Scan Report Signed Patient: Neena Martell MMR#: [id number] : 6Acct:[id number] Age/Sex: 83 / FDate of Service: 01/10/19 Loc: ED Accession Number: [id number] Procedure: CT abdomen pelvis w con Ordering Provider: Hugh Singh D.O. PROCEDURE: CT ABDOMEN PELVIS W CON INDICATIONS: abdominal pain, per vascular at [facility] TECHNIQUE: After the administration of intravenous contrast, 5 mm thick sections acquired from the diaphragm to the symphysis. 5 mm coronal and sagittal reformats were acquired. For radiation dose reduction, the following was used: automated exposure control, adjustment of mA and/or kV according to patient size. COMPARISON: None. FINDINGS: Image quality: Excellent. ABDOMEN: Lung bases: A 5 mm diameter nodule is present at the right lung base (series 3, image 6). Heart size is normal. Solid organs: The liver demonstrates overall normal size and enhancement. A low density circumscribed lesion is present within the left hepatic lobe which may represent a simple hepatic cyst. The portal vein is enlarged and thrombosed throughout its course. The splenic vein and the SMV are enlarged and thrombosed as well. Subtle enhancement is present along the periphery of the thrombus. Subtle fat stranding is present at the yadira hepatis. The spleen measures 10.5 cm in length. Wedge-shaped hypodensities are present within the spleen suggesting infarct. The pancreas demonstrates normal enhancement. The main pancreatic and accessory pancreatic ducts are prominent and there is mild dilatation of the accessory pancreatic duct up to 6 mm in diameter. The kidneys demonstrate symmetric size and enhancement. No hydronephrosis. No adrenal gland nodules. Peritoneum and bowel: Bowel loops demonstrate normal wall thickness and overall caliber. A large amount stool is present within the rectosigmoid. There are scattered sigmoid diverticula. No evidence for diverticulitis. No free fluid or air. Nodes and vessels: No retroperitoneal or mesenteric adenopathy by size criteria. Aorta and inferior vena cava are normal in size. Dense atheromatous calcification is present throughout the abdominal aorta. Exophytic plaque measuring 6 mm in diameter is present along the posterior aspect of the distal descending thoracic aorta. Miscellaneous: No ventral hernias. PELVIS: Genitourinary: Bladder wall thickness is normal. The uterus and ovaries are n ot visualized and may be surgically absent. Miscellaneous: No inguinal hernias or adenopathy. Bones: No suspicious bony lesions. No vertebral body compression fractures. IMPRESSION: 1. Enlarged, thrombosed portal vein, splenic vein, and superior mesenteric vein. Subtle enhancement is present around the periphery of this thrombus. It is unclear whether this represents minimal flow of contrast-enhanced blood around the periphery of the thrombus, or may represent enhancement in the setting of tumor thrombus. Of note, no definite primary neoplasm is visualized. These findings were discussed with the GOLDIE Oscar at 11:30 AM on 01/10/19. 2. 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 3. Fecal impaction. No upstream obstruction at this time. 4. Diverticulosis. No acute diverticulitis. Dictated by: Aspen Su M.D. on 01/10/2019 at 11:26 Approved by: Aspen Su M.D. on 01/10/2019 at 11:39 <Hugh Singh DO - Last Filed: 01/10/19 15:06> Critical Care Time: Yes Total Critical Care Time: 30 Attestation: The high probability of a clinically significant, sudden or life threatening deterioration of the [cardiovascular] system(s) required my full and direct attention, intervention and personal management. The aggregate critical care time was [30] minutes. This time is in addition to time spent performing reported procedures but includes the following: [x] Data Review and interpretation [x] Patient assessment and monitoring of vital signs [x] Documentation [x] Medication orders and management Discharge Plan Departure Patient Disposition: [facility] Clinical Impression: Portal vein thrombosis, Acute thrombosis of splenic vein Discharge Date/Time: 01/10/19 14:35 Interventions: ED Discharge Assessment Last Done: 01/10/19 14:16 Prescriptions: No Action multivitamin [Multiple Vitamins] 1 EACH tablet 1 tab PO QDAY Qty: 0 RF: 0 omeprazole 20 MG tablet,delayed release (DR/EC) 20 mg PO BIDAC Qty: 60 RF: 4 levothyroxine 88 mcg tablet 0.088 mg PO QDAY Qty: 90 RF: 3 metoprolol tartrate 25 mg tablet 25 mg PO Q DAY Qty: 90 RF: 3 triamterene-hydrochlorothiazid 37.5-25 mg tablet 1 tab PO QDAY Qty: 90 RF: 3 hydroxyurea [Hydrea] 500 MG capsule 500 mg PO QDAY Qty: 30 RF: 2 cholecalciferol (vitamin D3) [Vitamin D3] 1,000 unit Capsule 1,000 unit PO DAILY RF: 0 magnesium oxide 400 mg Capsule 400 mg PO QMWF RF: 0 hydroxyurea 500 mg Capsule 500 mg PO DAILY Qty: 30 RF: 11 Referrals: Ivan Gurrola MD [Primary Care Provider] -
[2019-01-10 06:49] LABS: Troponin I < 0.012 ng/mL (0.01-0.034)
[2019-01-10 06:50] LABS: Basophils Absolute Auto 0 /uL (0-100); Basophils Percent Auto 0.4 % (0-2); Eosinophils Absolute Auto 0 /uL (0-450); Eosinophils Percent Auto 0.3 % (2-4); Hematocrit 40.2 % (36-46); Hemoglobin 13.4 g/dL (12.0-16.0); Lymphocytes Absolute Auto 1500 /uL (1100-4500); Lymphocytes Percent Auto 13.2 % (25-40); Mean Corpuscular HGB Conc 33.3 % (30-36); Mean Corpuscular Hemoglobin 30.6 PG (26-34); Mean Corpuscular Volume 91.9 fL (80-100); Monocytes Absolute Auto 1700 /uL (0-900); Neutrophils Absolute Auto 8100 /uL (1500-7000); Neutrophils Percent Auto 71.1 % (50-75); Platelet Count 181 X10^3/uL (150-400); Red Blood Cell Count 4.37 X10^6/uL (4.0-5.2); Red Cell Distribution Width 13.9 % (11.6-14.8); White Blood Cell Count 11.4 X10^3/uL (4.5-11.0)
[2019-01-10] MEDS: ASPIRIN 81 MG TAB 324 MG PO (06:50)
[2019-01-10] MEDS: SODIUM CHLORIDE 0.9% 1,000 ML 150 ML IV (06:50)
[2019-01-10 07:19] LABS: Add Manual Diff / Slide Review SLIDE REVIEW; RBC Morphology Normal Morphology
--- NOTE | 2019-01-10 07:26 | DI.US.S_ITS ---
PROCEDURE: US ABDOMEN COMPLETE INDICATIONS: SEVERE EPIGASTRIC PAIN TECHNIQUE: Real-time scanning was performed of the abdominal and retroperitoneal organs, with image documentation. COMPARISON: None. FINDINGS: Liver: Liver is normal in size and homogeneous in echotexture. The central portal vein and the main left and right branches of the portal vein are thrombosed. Gallbladder: The gallbladder wall measures 2.2 mm in diameter. No stones, sludge, pericholecystic fluid, or sonographic Ortega sign. Biliary ducts: Intrahepatic bile ducts are non-dilated. Extrahepatic bile duct caliber measures 5.5 mm. Normal is 6-7 mm or less in diameter, or 10 mm or less post-cholecystectomy. Pancreas: Visualized portions of the pancreas are sonographically normal. Spleen: The spleen measures 13.2 cm in length. Where visualized the splenic vein appears thrombosed. Kidneys: Kidneys are normal in size and echotexture. Right kidney measures 10.0 cm long; left kidney measures 11.5 cm long. No hydronephrosis or nephrolithiasis. No solid masses. Aorta: Visualized aorta is normal in caliber at less than 3 cm. Iliacs: The iliac arteries are not visualized. IVC: Intrahepatic inferior vena cava is patent. Miscellaneous: No free abdominal fluid. IMPRESSION: 1. Portal vein and splenic vein thrombosis. No definite cavernous transformation is visualized suggesting this may be an acute or subacute finding. These findings were discussed with Dr. Singh at 8:05 AM on 01/10/19. 2. No cholelithiasis or findings to suggest choledocholithiasis or acute cholecystitis. Dictated by: Aspen Su M.D. on 01/10/2019 at 7:59 Approved by: Aspen Su M.D. on 01/10/2019 at 8:05
[2019-01-10] MEDS: HEPARIN 5,000 UNIT/ML VIAL 4700 UNIT IV (08:56)
[2019-01-10 09:03] LABS: INR 1.3 (0.9-1.3); Prothrombin Time 15.4 SECONDS (10.1-12.7)
[2019-01-10 09:06] LABS: PTT Partial Thromboplastin Tim 32 SECONDS (26.4-36.2)
--- NOTE | 2019-01-10 11:40 | DI.CT.S_ITS ---
PROCEDURE: CT ABDOMEN PELVIS W CON INDICATIONS: abdominal pain, per vascular at [facility] TECHNIQUE: After the administration of intravenous contrast, 5 mm thick sections acquired from the diaphragm to the symphysis. 5 mm coronal and sagittal reformats were acquired. For radiation dose reduction, the following was used: automated exposure control, adjustment of mA and/or kV according to patient size. COMPARISON: None. FINDINGS: Image quality: Excellent. ABDOMEN: Lung bases: A 5 mm diameter nodule is present at the right lung base (series 3, image 6). Heart size is normal. Solid organs: The liver demonstrates overall normal size and enhancement. A low density circumscribed lesion is present within the left hepatic lobe which may represent a simple hepatic cyst. The portal vein is enlarged and thrombosed throughout its course. The splenic vein and the SMV are enlarged and thrombosed as well. Subtle enhancement is present along the periphery of the thrombus. Subtle fat stranding is present at the yadira hepatis. The spleen measures 10.5 cm in length. Wedge-shaped hypodensities are present within the spleen suggesting infarct. The pancreas demonstrates normal enhancement. The main pancreatic and accessory pancreatic ducts are prominent and there is mild dilatation of the accessory pancreatic duct up to 6 mm in diameter. The kidneys demonstrate symmetric size and enhancement. No hydronephrosis. No adrenal gland nodules. Peritoneum and bowel: Bowel loops demonstrate normal wall thickness and overall caliber. A large amount stool is present within the rectosigmoid. There are scattered sigmoid diverticula. No evidence for diverticulitis. No free fluid or air. Nodes and vessels: No retroperitoneal or mesenteric adenopathy by size criteria. Aorta and inferior vena cava are normal in size. Dense atheromatous calcification is present throughout the abdominal aorta. Exophytic plaque measuring 6 mm in diameter is present along the posterior aspect of the distal descending thoracic aorta. Miscellaneous: No ventral hernias. PELVIS: Genitourinary: Bladder wall thickness is normal. The uterus and ovaries are not visualized and may be surgically absent. Miscellaneous: No inguinal hernias or adenopathy. Bones: No suspicious bony lesions. No vertebral body compression fractures. IMPRESSION: 1. Enlarged, thrombosed portal vein, splenic vein, and superior mesenteric vein. Subtle enhancement is present around the periphery of this thrombus. It is unclear whether this represents minimal flow of contrast-enhanced blood around the periphery of the thrombus, or may represent enhancement in the setting of tumor thrombus. Of note, no definite primary neoplasm is visualized. These findings were discussed with the GOLDIE Oscar at 11:30 AM on 01/10/19. 2. 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 3. Fecal impaction. No upstream obstruction at this time. 4. Diverticulosis. No acute diverticulitis. Dictated by: Aspen Su M.D. on 01/10/2019 at 11:26 Approved by: Aspen Su M.D. on 01/10/2019 at 11:39
[2019-01-10] MEDS: HEPARIN DRIP 25,000 UNIT/500 ML IV.SOLN 20 UNIT IV (12:02)
== END 2019-01-10 14:35 | disposition short-term general hospital (02) ==
PROVIDERS: Emergency Medicine; Emergency Provider Emergency Medicine; PCP Student in an Organized Health Care Education/Training Program
DX: I81 Portal vein thrombosis (principal); I82.890 Acute embolism and thrombosis of other specified veins; R10.13 Epigastric pain
CPT/HCPCS: 36415; 36591; 74022; 74177; 76700; 80053; 82550; 83605; 83690; 84484; 85025; 85610; 85730; 93005; 96361; 96365; 96366; 96376; 99285; J1644

== ENCOUNTER → 2019-08-10 12:47 | Outpatient (CLI) | payer MEDICARE, OTHER, SELFPAY ==
--- NOTE | 2019-08-10 12:48 | DI.CT.S_ITS ---
PROCEDURE: CT ABDOMEN PELVIS W CON INDICATIONS: portal vein thrombosis TECHNIQUE: After the administration of oral and intravenous contrast, 5 mm thick sections acquired from the diaphragms to the symphysis. 5 mm thick coronal and sagittal reformats were performed. For radiation dose reduction, the following was used: automated exposure control, adjustment of mA and/or kV according to patient size. COMPARISON: Merged With [facility], CT, CT ABDOMEN PELVIS W CON, 01/10/2019, 12:00. FINDINGS: Image quality: Excellent. ABDOMEN: Lung bases: Lung bases are clear except for a small rounded nodule at the posterolateral right lung base (series 3 image 1) previously present and benign in etiology, measuring 4 mm. Heart size is normal. Solid organs: Liver is normal in size and heterogeneous in enhancement with a geographic pattern of low and normal attenuation, likely reflecting fatty infiltration within areas of the liver which are low in attenuation. 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 Currently the portal vein structures are not identified, but rather venous and some degree of arterial collateral flow appears present at the yadira hepatis. Additionally, omental mild varices are present, and there are venous collaterals extending inferiorly from the pancreatic tail region into the pelvis and also likely from the spleen directed inferiorly. Several wedge-shaped hypodensities are present within the spleen peripherally, likely representing secondary small splenic infarctions. Gallbladder appears normal. Biliary system is non-dilated. Pancreas enhances normally. Spleen is normal in size and enhancement. No adrenal nodules. Kidneys are normal in size and enhancement, without hydronephrosis. Peritoneum and bowel: Stomach, small bowel, and colon loops are normal in caliber and wall thickness. No free fluid or air. Nodes and vessels: No retroperitoneal or mesenteric adenopathy. Aorta and inferior vena cava are normal in caliber. Miscellaneous: No ventral hernias. PELVIS: Genitourinary: Bladder wall thickness is normal. Miscellaneous: No inguinal hernias or adenopathy. Rectal obstipation is prominent, extending into the sigmoid colon to a mild degree. This was also previously present. Bones: No suspicious bony lesions. No vertebral body compression fractures. 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 Collateral flow has developed within the abdomen and pelvis decompressing mesenteric venous flow. Secondary heterogeneous geographic fatty infiltration within the liver is present. 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 No ascites is found, no mass lesion as cause of the portal vein thrombosis is found. Incidental note is again made of a 4 mm right lung base posterolateral nodule requiring no followup given its stability over time from December of last year. Colonic obstipation is prominent at the rectum. Etiology is uncertain and physical examination correlation for the anal rectal junction likely is warranted to ensure that mass lesion in that area is not present. Dictated by: Jerry Gauthier M.D. on 08/10/2019 at 16:50 Approved by: Jerry Gauthier M.D. on 08/10/2019 at 16:59
== END ==
PROVIDERS: PCP Student in an Organized Health Care Education/Training Program; Referring Provider Internal Medicine Hematology & Oncology; Visit Provider Internal Medicine Hematology & Oncology
DX: I81 Portal vein thrombosis (principal); I74.8 Embolism and thrombosis of other arteries; D45 Polycythemia vera; R91.1 Solitary pulmonary nodule; K59.00 Constipation, unspecified
CPT/HCPCS: 74177; Q9967

== ENCOUNTER 2020-07-02 16:20 | Emergency (ER) | payer MEDICARE, OTHER, SELFPAY ==
[2020-07-02] VITALS (8 sets, daily range): BP systolic 116–180; BP diastolic 64–83; PULSE 85–111; RESP 15–29; TEMP 36.6–36.9; O2SAT 96–99
--- NOTE | 2020-07-02 16:38 | DI.RAD.S_ITS ---
PROCEDURE: XR HAND RT MIN 3V INDICATIONS: thumb deformity, s/p fall TECHNIQUE: 3 views of the hand(s) acquired. COMPARISON: None. FINDINGS: Bones: Fracture of the proximal shaft of the 1st metacarpal, mild displacement. There is dislocation of the 1st digit MCP joint. Carpal bones are normally aligned. Advanced degenerative change at the 1st CMC joint. No suspicious bony lesions. Soft tissues: No suspicious soft tissue calcifications. IMPRESSION: 1. Fracture of the 1st digit proximal shaft. 2. Dislocation of the 1st digit MCP joint. Dictated by: Horacio Sood M.D. on 07/02/2020 at 17:11 Approved by: Horacio Sood M.D. on 07/02/2020 at 17:13
--- NOTE | 2020-07-02 16:39 | DI.CT.S_ITS ---
PROCEDURE: CT CERVICAL SPINE WO CON INDICATIONS: Trauma TECHNIQUE: Noncontrast 3 mm thick sections acquired from the skull base to the T4 level. Sagittal and coronal reformats were then constructed. For radiation dose reduction, the following was used: automated exposure control, adjustment of mA and/or kV according to patient size. COMPARISON: [facility], CR, CERVICAL SPINE 2 OR 3 VIEWS, 08/31/2016, 17:48. [facility], CT, CT HEAD/BRAIN WO CON, 07/02/2020, 17:04. FINDINGS: Image quality: Good. Bones: No fractures or dislocations. Visualized superior ribs are intact. Advanced degenerative change in the cervical spine. Soft tissues: Prevertebral soft tissues are normal in thickness. No paravertebral hematomas. No apical pneumothoraces. IMPRESSION: No acute osseous abnormality. Dictated by: Horacio Sood M.D. on 07/02/2020 at 17:07 Approved by: Horacio Sood M.D. on 07/02/2020 at 17:10
--- NOTE | 2020-07-02 16:39 | DI.RAD.S_ITS ---
PROCEDURE: XR CHEST 1V INDICATIONS: thumb deformity, s/p fall TECHNIQUE: One view of the chest was acquired. COMPARISON: [facility], CHEST 2 VIEW, 07/10/2015, 11:55. [facility], CHEST 2 VIEW, 12/09/2013, 15:31. FINDINGS: Surgical changes and devices: None. Lungs and pleura: Lungs are clear. No pleural effusions or pneumothorax. Mediastinum: Mediastinal contours appear normal. Heart size is normal. Bones and chest wall: No suspicious bony lesions. Overlying soft tissues appear unremarkable. IMPRESSION: No acute cardiopulmonary abnormality. Dictated by: Horacio Sood M.D. on 07/02/2020 at 17:13 Approved by: Horacio Sood M.D. on 07/02/2020 at 17:14
--- NOTE | 2020-07-02 16:39 | DI.CT.S_ITS ---
PROCEDURE: CT HEAD/BRAIN WO CON INDICATIONS: Trauma TECHNIQUE: Noncontrast 4.5 mm thick angled axial sections acquired from the foramen magnum to the vertex, with coronal and sagittal reformats. For radiation dose reduction, the following was used: automated exposure control, adjustment of mA and/or kV according to patient size. COMPARISON: None. FINDINGS: Image quality: Excellent. CSF spaces: Basal cisterns are patent. No extra-axial fluid collections. Ventricles are normal in size and shape. Brain: No midline shift. No intracranial masses or hemorrhage. No area of hypodensity in a large vascular distribution to suggest acute infarction. Periventricular hypodensity consistent with chronic microvascular ischemic change. Age-related parenchymal loss. Skull and face: Small left frontal scalp hematoma, (2/18). No underlying fracture. Calvarium and visualized facial bones are intact, without suspicious lesions. Sinuses: Visualized sinuses and mastoids are clear. IMPRESSION: No acute intracranial abnormality. Small left frontal scalp hematoma. Dictated by: Horacio Sood M.D. on 07/02/2020 at 16:57 Approved by: Horacio Sood M.D. on 07/02/2020 at 16:59
[2020-07-02 17:14] LABS: Add Manual Diff / Slide Review NO; Basophils Absolute Auto 100 /uL (0-100); Basophils Percent Auto 0.9 % (0-2); Eosinophils Absolute Auto 0 /uL (0-450); Eosinophils Percent Auto 0.5 % (2-4); Hematocrit 44.4 % (36-46); Hemoglobin 14.4 g/dL (12.0-16.0); INR 1.5 (0.9-1.3); Lymphocytes Absolute Auto 2200 /uL (1100-4500); Lymphocytes Percent Auto 29.9 % (25-40); Mean Corpuscular HGB Conc 32.5 % (30-36); Mean Corpuscular Hemoglobin 31.8 PG (26-34); Mean Corpuscular Volume 97.8 fL (80-100); Monocytes Absolute Auto 900 /uL (0-900); Monocytes Percent Auto 12.4 % (3-14); Neutrophils Absolute Auto 4200 /uL (1500-7000); Neutrophils Percent Auto 56.3 % (50-75); Platelet Count 176 X10^3/uL (150-400); Prothrombin Time 17.3 SECONDS (10.1-12.7); Red Blood Cell Count 4.54 X10^6/uL (4.0-5.2); Red Cell Distribution Width 13.7 % (11.6-14.8); White Blood Cell Count 7.4 X10^3/uL (4.5-11.0)
[2020-07-02 17:16] LABS: PTT Partial Thromboplastin Tim 36 SECONDS (26.4-36.2)
[2020-07-02 17:19] LABS: Alanine Aminotransferase 25 IU/L (<35); Albumin 4.4 g/dL (3.5-5.0); Albumin Globulin Ratio 1.4 (1.0-2.8); Alkaline Phosphatase 140 U/L (38-126); Aspartate Aminotransferase 31 IU/L (14-36); BUN Creatinine Ratio 29.7 (6-22); Bilirubin Total 2.3 mg/dL (0.2-1.3); Blood Urea Nitrogen 19 mg/dL (7-17); Calcium 9.8 mg/dL (8.4-10.2); Carbon Dioxide 26 mmol/L (22-32); Chloride 100 mmol/L (98-107); Estimated Glomerular Filt Rate > 60.0 mL/min (>60); Ethanol (ETOH) < 10 mg/dL; Globulin 3.1 g/dL (1.7-4.1); Glucose 88 mg/dL (80-110); HEMOLYSIS < 15 (0-50); Lipase 122 U/L (23-300); Potassium 3.8 mmol/L (3.4-5.1); Sodium 137 mmol/L (137-145); Total Protein 7.5 g/dL (6.3-8.2)
[2020-07-02] MEDS: HYDROMORPHONE 0.5 MG INJ IV (17:42)
[2020-07-02] MEDS: ONDANSETRON 4 MG/2 ML INJ IV (17:43)
--- NOTE | 2020-07-02 18:57 | ED_ITS ---
HPI - Fall <Yaz Wolf DO - Last Filed: 07/03/20 12:13> General Chief Complaint: Trauma Stated Complaint: fell Time Seen by Provider: 07/02/20 16:33 Source: patient Mode of arrival: Ambulatory Limitations: no limitations History of Present Illness HPI Narrative: This is an 85-year-old female who states she had a ground level fall in the [facility], [place]. She states that she believes she tripped and fell. She does not recall if she got knocked out. She initially did not think she hit her head but she does have bruising on her forehead. She does take apixaban or Eliquis daily. She describes a mild headache no vision changes. She is ambulating in the room. No neck, back, chest or abdominal pain. She denies any shortness of breath. She denies any nausea or vomiting. No other GI or urinary symptoms. She had noted her right thumb appears quite deformed and that is her main concern. She states she can barely move it. She can feel the end. She does not have any complaint of numbness currently. Patient states she does have some allergy to medication but she is unsure what it is. 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 Related Data Home Medications Medication Instructions Recorded Confirmed multivitamin [Multiple Vitamins] 1 tab PO QDAY #0 10/22/16 03/06/20 magnesium oxide 400 mg PO QMWF 10/08/18 03/06/20 Previous Rx's Medication Instructions Recorded hydroxyurea 500 mg PO DAILY #30 cap 10/08/18 apixaban 5 mg PO BID #60 tab 07/12/19 triamterene 37.5 1 tab PO QDAY #90 tab 07/16/19 mg-hydrochlorothiazide 25 mg tablet levothyroxine 88 mcg tablet 88 mcg PO QDAY #90 tab 08/09/19 mirabegron 50 mg tablet,extended 50 mg PO DAILY #90 tab 12/15/19 release 24 hr Allergies Allergy/AdvReac Type Severity Reaction Status Date / Time morphine [MORPHINE] Allergy Unknown ITCHING Verified 07/01/19 15:34 Review of Systems <DO Christianne Bah Last Filed: 07/03/20 12:13> Review of Systems ROS Unobtainable: All systems reviewed & are unremarkable except as noted in HPI and below Patient History <Yaz Wolf DO - Last Filed: 07/03/20 12:13> Medical History (Updated 07/02/20 @ 19:21 by Yaz Wolf DO) Allergic rhinitis Bunion, left foot Corns Dizziness Fibromyalgia Hammertoe of left foot Hearing loss Hyperlipidemia Hypertension Hypothyroidism Osteoarthritis Subtrochanteric fracture of right femur (04/2012) Syncope and collapse Wears glasses Surgical History History of bilateral inguinal hernia repair History of bone marrow biopsy (10/11/16) History of colonoscopy with polypectomy (03/18/17) History of endoscopy (01/14/17) History of hysterectomy History of orthopedic surgery (05/10/12) History of surgery History of tonsillectomy and adenoidectomy Family History Father No problems noted. Mother No problems noted. Social History Smoking Status: Never smoker Smoking Status: Never smoker alcohol intake frequency: 0-2 drinks per day Substance Use Type: does not use Exam <Yaz Wolf DO - Last Filed: 07/03/20 12:13> Narrative Exam Narrative: GEN: Patient appears in mild distress. HEAD: Patient has a hematoma on her left forehead no laceration noted, no raccoon/Liriano sign. NECK: Nontender, painless range of motion, trachea midline Positive Nexus criteria, there is no mid line tenderness, distracting injury, questionable altered mental status, no neuro deficit, recent EtOH. EYES: PERRLA, EOMI ENT: External inspection normal other than described above, trachea is midline, TM's are normal no hemotypanum, Nares are clear, no septal hematoma, no dental or oral injury, airway is normal and with normal occlusion, No bony tenderness RESP: Chest is nontender and has symmetric movement, no ecchymosis, breath sounds are normal no crackles, wheezes or rales CVS: Heart sounds are normal, no murmur noted, No JVD. ABG/GI: Nontender, soft, normal bowel sounds, no distention, no organomegaly, pelvic rock is negative. NEURO: Oriented AOx3, neuro is grossly intact, sensation and motor is normal all 4 extremities moving, cranial nerves II through XII are intact, GCS is 15 PSYCH: Normal mood and affect SKIN: Intact, warm and dry, no crepitus and without decubitus BACK: No CVA tenderness, no vertebral tenderness, no step-off's, no crepitus EXT: Patient has obvious deformity of her right thumb, appears to be dislocation of the proximal some, patient has sensation to light touch. She has difficulty with flexion and extension but has a small amount of movement. Hips are nontender, no pedal edema, normal color and temperature, normal range of motion of extremities with normal tendon exam, 2+ pulses in all four extremities Initial Vital Signs Initial Vital Signs: Vital Signs Temperature 97.9 F 07/02/20 16:25 Pulse Rate 111 H 07/02/20 16:25 Respiratory Rate 22 07/02/20 16:25 Blood Pressure 141/77 H 07/02/20 16:25 Pulse Oximetry 97 07/02/20 16:25 <Karthikeyan Rm DO - Last Filed: 07/02/20 23:52> Initial Vital Signs Initial Vital Signs: Vital Signs Temperature 97.9 F 07/02/20 16:25 Pulse Rate 111 H 07/02/20 16:25 Respiratory Rate 22 07/02/20 16:25 Blood Pressure 141/77 H 07/02/20 16:25 Pulse Oximetry 97 07/02/20 16:25 <Karthikeyan Rm, DO - Last Filed: 07/02/20 23:52> Nerve Block Nerve Block 1: Time out performed: Yes Local Anesthetic: lidocaine 1% and with bicarb Amount of anesthesia used (mL): 10 Side: right Nerve Blocks: digital Procedure Successful: Yes Patient Tolerated Procedure: Well and No complications Complications: none Orthopedic Joint Reduction Joint #1: Time Out Performed: Yes Side: right Joint Reduction Location: finger (MCP joint some) Analgesia: other (Finger block) Local Anesthesia: lidocaine 1% and with bicarb Amount of anesthesic used (mL): 10 Technique used: direct manipulation Post-reduction neuro exam: intact Post-reduction vascular: intact Post Reduction X-Ray Obtained: Yes Post Reduction X-Ray Results: reduced Splint Applied: Yes Patient Tolerated Procedure: Well and No complications Orthopedic Splinting/Casting Injury #1: Side: right Upper Extremity Injury Location: finger (Right thumb) Upper Extremity Immobilizer: thumb spica Post splinting neuro exam: intact Post splinting vascular exam: intact Placed by: Provider Scores <Yaz Wolf DO - Last Filed: 07/03/20 12:13> GCS Flaca coma scale eye opening: Spontaneous [place] coma scale verbal response: Orientated (Patient is A&O x4. ) [place] coma scale motor response: Obey commands Flaca coma scale total score: 15 Course <Yaz Wolf DO - Last Filed: 07/03/20 12:13> Orders Ordered: Discontinued Medications Acetaminophen (Acetaminophen 325 Mg Tablet) 975 mg PO NOW ONE Stop: 07/02/20 16:39 Last Admin: 07/02/20 17:43 Dose: Not Given Documented by: AMIRAH Hydromorphone HCl (Hydromorphone 0.5 Mg Inj) 0.5 mg IV NOW ONE Stop: 07/02/20 17:30 Last Admin: 07/02/20 17:42 Dose: 0.5 mg Documented by: AMIRAH Lidocaine/Sodium Bicarbonate (Lido 1%/Sod Bicarb 8.4% (10ml) 10 Ml Syringe) 10 ml INJ NOW ONE Stop: 07/02/20 19:20 Last Admin: 07/02/20 19:55 Dose: 10 ml Documented by: GLORIA Ondansetron HCl (Ondansetron 4 Mg/2 Ml Inj) 4 mg IV NOW ONE Stop: 07/02/20 17:30 Last Admin: 07/02/20 17:43 Dose: 4 mg Documented by: AMIRAH Consultations Consultation #1: Spoke with Dr. Jimenez, who recommends attempted reduction of the dislocation of the thumb. He suspects this may also help the proximal fracture. If the dislocation is resolved patient can follow-up outpatient. If it is successful to recontact Dr. Jimenez. Time: 18:00 Vital Signs Vital signs: Vital Signs - 8 hr 07/02/20 16:25 07/02/20 16:48 07/02/20 17:00 Temperature 97.9 F Pulse Rate 111 H 108 H 101 H Respiratory Rate 22 15 29 H Blood Pressure 141/77 H 116/73 126/75 Pulse Oximetry 97 96 96 07/02/20 17:25 07/02/20 17:30 07/02/20 17:38 Temperature Pulse Rate 102 H 98 H 91 H Respiratory Rate 21 25 H 16 Blood Pressure 137/83 144/64 H 144/64 H Pulse Oximetry 97 99 99 07/02/20 18:00 07/02/20 21:44 Temperature 98.4 F Pulse Rate 85 94 H Respiratory Rate 27 H 24 Blood Pressure 132/70 180/73 H Pulse Oximetry 99 97 <Karthikeyan Rm DO - Last Filed: 07/02/20 23:52> Orders Ordered: Discontinued Medications Acetaminophen (Acetaminophen 325 Mg Tablet) 975 mg PO NOW ONE Stop: 07/02/20 16:39 Last Admin: 07/02/20 17:43 Dose: Not Given Documented by: AMIRAH Hydromorphone HCl (Hydromorphone 0.5 Mg Inj) 0.5 mg IV NOW ONE Stop: 07/02/20 17:30 Last Admin: 07/02/20 17:42 Dose: 0.5 mg Documented by: AMIRAH Lidocaine/Sodium Bicarbonate (Lido 1%/Sod Bicarb 8.4% (10ml) 10 Ml Syringe) 10 ml INJ NOW ONE Stop: 07/02/20 19:20 Last Admin: 07/02/20 19:55 Dose: 10 ml Documented by: GLORIA Ondansetron HCl (Ondansetron 4 Mg/2 Ml Inj) 4 mg IV NOW ONE Stop: 07/02/20 17:30 Last Admin: 07/02/20 17:43 Dose: 4 mg Documented by: AMIRAH Vital Signs Vital signs: Vital Signs - 8 hr 07/02/20 16:25 07/02/20 16:48 07/02/20 17:00 Temperature 97.9 F Pulse Rate 111 H 108 H 101 H Respiratory Rate 22 15 29 H Blood Pressure 141/77 H 116/73 126/75 Pulse Oximetry 97 96 96 07/02/20 17:25 07/02/20 17:30 07/02/20 17:38 Temperature Pulse Rate 102 H 98 H 91 H Respiratory Rate 21 25 H 16 Blood Pressure 137/83 144/64 H 144/64 H Pulse Oximetry 97 99 99 07/02/20 18:00 07/02/20 21:44 Temperature 98.4 F Pulse Rate 85 94 H Respiratory Rate 27 H 24 Blood Pressure 132/70 180/73 H Pulse Oximetry 99 97 MDM - Fall <Yaz Wolf DO - Last Filed: 07/03/20 12:13> Lab Data Result diagrams: 07/02/20 16:45 07/02/20 16:45 Labs: Lab Results 07/02/20 07/02/20 07/02/20 Range/Units 16:45 16:45 16:45 WBC 7.4 (4.5-11.0) X10^3/uL RBC 4.54 (4.0-5.2) X10^6/uL Hgb 14.4 (12.0-16.0) g/dL Hct 44.4 (36-46) % MCV 97.8 (80-100) fL MCH 31.8 (26-34) PG MCHC 32.5 (30-36) % RDW 13.7 (11.6-14.8) % Plt Count 176 (150-400) X10^3/uL Neut % (Auto) 56.3 (50-75) % Lymph % (Auto) 29.9 (25-40) % [place] % (Auto) 12.4 (3-14) % Eos % (Auto) 0.5 L (2-4) % Baso % (Auto) 0.9 (0-2) % Neut # (Auto) 4200 (8343-7495) /uL Lymph # (Auto) 2200 (1566-5157) /uL [place] # (Auto) 900 (0-900) /uL Eos # (Auto) 0 (0-450) /uL Baso # (Auto) 100 (0-100) /uL PT 17.3 H (10.1-12.7) SECONDS INR 1.5 H (0.9-1.3) APTT 36 (26.4-36.2) SECONDS Sodium 137 (137-145) mmol/L Potassium 3.8 (3.4-5.1) mmol/L Chloride 100 (98-107) mmol/L Carbon Dioxide 26 (22-32) mmol/L BUN 19 H (7-17) mg/dL Creatinine 0.64 (0.52-1.04) mg/dL Estimated GFR > 60.0 (>60) mL/min BUN/Creatinine Ratio 29.7 H (6-22) Glucose 88 (80-110) mg/dL Calcium 9.8 (8.4-10.2) mg/dL Total Bilirubin 2.3 H (0.2-1.3) mg/dL AST 31 (14-36) IU/L ALT 25 (<35) IU/L Alkaline Phosphatase 140 H (38-126) U/L Total Protein 7.5 (6.3-8.2) g/dL Albumin 4.4 (3.5-5.0) g/dL Globulin 3.1 (1.7-4.1) g/dL Albumin/Globulin Ratio 1.4 (1.0-2.8) Lipase 122 (23-300) U/L Urine RBC (0-5/HPF) Urine WBC (0-5/HPF) Amorphous Sediment Urine Bacteria (None) Ur Culture Indicated? Ethyl Alcohol < 10 ( - 10) mg/dL Blood Type Antibody Screen 07/02/20 07/02/20 Range/Units 16:45 20:43 WBC (4.5-11.0) X10^3/uL RBC (4.0-5.2) X10^6/uL Hgb (12.0-16.0) g/dL Hct (36-46) % MCV (80-100) fL MCH (26-34) PG MCHC (30-36) % RDW (11.6-14.8) % Plt Count (150-400) X10^3/uL Neut % (Auto) (50-75) % Lymph % (Auto) (25-40) % [place] % (Auto) (3-14) % Eos % (Auto) (2-4) % Baso % (Auto) (0-2) % Neut # (Auto) (7792-4630) /uL Lymph # (Auto) (9674-4512) /uL [place] # (Auto) (0-900) /uL Eos # (Auto) (0-450) /uL Baso # (Auto) (0-100) /uL PT (10.1-12.7) SECONDS INR (0.9-1.3) APTT (26.4-36.2) SECONDS Sodium (137-145) mmol/L Potassium (3.4-5.1) mmol/L Chloride (98-107) mmol/L Carbon Dioxide (22-32) mmol/L BUN (7-17) mg/dL Creatinine (0.52-1.04) mg/dL Estimated GFR (>60) mL/min BUN/Creatinine Ratio (6-22) Glucose (80-110) mg/dL Calcium (8.4-10.2) mg/dL Total Bilirubin (0.2-1.3) mg/dL AST (14-36) IU/L ALT (<35) IU/L Alkaline Phosphatase (38-126) U/L Total Protein (6.3-8.2) g/dL Albumin (3.5-5.0) g/dL Globulin (1.7-4.1) g/dL Albumin/Globulin Ratio (1.0-2.8) Lipase (23-300) U/L Urine RBC None seen (0-5/HPF) Urine WBC None seen (0-5/HPF) Amorphous Sediment 3+ Urine Bacteria Many (>30) H (None) Ur Culture Indicated? Specimen cultured Ethyl Alcohol ( - 10) mg/dL Blood Type A Positive Antibody Screen Negative Urine Dip Bedside Urine Glucose Negative Bedside Urine Bilirubin - Negative Bedside Urine Ketone - Negative Urine Specific [place] 1.015 Bedside Urine Occult Blood - Negative Bedside Urine pH 8.0 Bedside Urine Protein - Negative Bedside Urine Urobilinogen - Negative Bedside Urine Nitrite + Positive Bedside Urine Leukocytes - Negative Esterase Imaging Data CT scan - head: Radiologist's Impression: [address] Scan ReportSigned Patient: Neena Martell [facility]#: [id number]: 1936cct:[id number]/Sex: 85 / FDate of Service: 07/02/20Loc: EDAccession Number: [id number] Procedure: CT head/brain wo con Ordering Provider: Yaz Wolf D.O. PROCEDURE: CT HEAD/BRAIN WO CON INDICATIONS: Trauma TECHNIQUE: Noncontrast 4.5 mm thick angled axial sections acquired from the foramen magnum to the vertex, with coronal and sagittal reformats. For radiation dose reduction, the following was used: automated exposure control, adjustment of mA and/or kV according to patient size. COMPARISON: None. FINDINGS: Image quality: Excellent. CSF spaces: Basal cisterns are patent. No extra-axial fluid collections. Ventricles are normal in size and shape. Brain: No midline shift. No intracranial masses or hemorrhage. No area of hypodensity in a large vascular distribution to suggest acute infarction. Periventricular hypodensity consistent with chronic microvascular ischemic change. Age-related parenchymal loss. Skull and face: Small left frontal scalp hematoma, (2/18). No underlying fracture. Calvarium and visualized facial bones are intact, without suspicious lesions. Sinuses: Visualized sinuses and mastoids are clear. IMPRESSION: No acute intracranial abnormality. Small left frontal scalp hematoma. Dictated by: Horacio Sood M.D. on 07/02/2020 at 16:57 Approved by: Horacio Sood M.D. on 07/02/2020 at 16:59 CT - cervical spine: Radiologist's Impression: [address] [id number] Scan ReportSigned Patient: Neena Martell MMR#: [id number]: 1936cct:[id number]/Sex: 85 / FDate of Service: 07/02/20Loc: EDAccession Number: [id number] Procedure: CT cervical spine wo con Ordering Provider: Yaz Wolf D.O. PROCEDURE: CT CERVICAL SPINE WO CON INDICATIONS: Trauma TECHNIQUE: Noncontrast 3 mm thick sections acquired from the skull base to the T4 level. Sagittal and coronal reformats were then constructed. For radiation dose reduction, the following was used: automated exposure control, adjustment of mA and/or kV according to patient size. COMPARISON: [facility], CR, CERVICAL SPINE 2 OR 3 VIEWS, 08/31/2016, 17:48. [facility], CT, CT HEAD/BRAIN WO CON, 07/02/2020, 17:04. FINDINGS: Image quality: Good. Bones: No fractures or dislocations. Visualized superior ribs are intact. Advanced degenerative change in the cervical spine. Soft tissues: Prevertebral soft tissues are normal in thickness. No paravertebral hematomas. No apical pneumothoraces. IMPRESSION: No acute osseous abnormality. Dictated by: Horacio Sood M.D. on 07/02/2020 at 17:07 Approved by: Horacio Sood M.D. on 07/02/2020 at 17:10 Chest x-ray: Radiologist's Impression: Neena Martell 85 F [address] [address]SZyp ReportSigned Patient: Neena Martell [facility]#: [id number]: 6Acct:[id number]/Sex: 85 / FDate of Service: 07/02/20Lo: EDAccession Number: [id number] Procedure: XR chest 1V Ordering Provider: Yaz Wolf D.O. PROCEDURE: XR CHEST 1V INDICATIONS: thumb deformity, s/p fall TECHNIQUE: One view of the chest was acquired. COMPARISON: [facility], CHEST 2 VIEW, 07/10/2015, 11:55. [facility], CHEST 2 VIEW, 12/09/2013, 15:31. FINDINGS: Surgical changes and devices: None. Lungs and pleura: Lungs are clear. No pleural effusions or pneumothorax. Mediastinum: Mediastinal contours appear normal. Heart size is normal. Bones and chest wall: No suspicious bony lesions. Overlying soft tissues appear unremarkable. IMPRESSION: No acute cardiopulmonary abnormality. Dictated by: Horacio Sood M.D. on 07/02/2020 at 17:13 Approved by: Horacio Sood M.D. on 07/02/2020 at 17:14 Extremity x-ray #1: Radiologist's Impression: [address] [address]EOvs ReportSigned Patient: Neena Martell MMR#: [id number]: 6Acct:[id number]/Sex: 85 / FDate of Service: 07/02/20Lo: EDAccession Number: [id number] Procedure: XR hand RT min 3V Ordering Provider: Yaz Wolf D.O. PROCEDURE: XR HAND RT MIN 3V INDICATIONS: thumb deformity, s/p fall TECHNIQUE: 3 views of the hand(s) acquired. COMPARISON: None. FINDINGS: Bones: Fracture of the proximal shaft of the 1st metacarpal, mild displacement. There is dislocation of the 1st digit MCP joint. Carpal bones are normally aligned. Advanced degenerative change at the 1st CMC joint. No suspicious bony lesions. Soft tissues: No suspicious soft tissue calcifications. IMPRESSION: 1. Fracture of the 1st digit proximal shaft. 2. Dislocation of the 1st digit MCP joint. Dictated by: Horacio Sood M.D. on 07/02/2020 at 17:11 Approved by: Horacio Sood M.D. on 07/02/2020 at 17:13 ECG Data Attestation: I personally reviewed and interpreted this ECG as follows: Prior ECG tracings: available for review Interpretation: Sinus rhythm rate of 100, P are 150, QRS is 78 QTC [address]. No acute ST changes appreciated. Q-wave in lead 3 and AVF prior EKG from 2019 appears similar MDM Narrative Medical decision making narrative: Patient signed out to Dr. Rm for final care of thumb and final dispositon. <Karthikeyan Rm, DO - Last Filed: 07/02/20 23:52> Lab Data Labs: Lab Results 07/02/20 07/02/20 07/02/20 Range/Units 16:45 16:45 16:45 WBC 7.4 (4.5-11.0) X10^3/uL RBC 4.54 (4.0-5.2) X10^6/uL Hgb 14.4 (12.0-16.0) g/dL Hct 44.4 (36-46) % MCV 97.8 (80-100) fL MCH 31.8 (26-34) PG MCHC 32.5 (30-36) % RDW 13.7 (11.6-14.8) % Plt Count 176 (150-400) X10^3/uL Neut % (Auto) 56.3 (50-75) % Lymph % (Auto) 29.9 (25-40) % [place] % (Auto) 12.4 (3-14) % Eos % (Auto) 0.5 L (2-4) % Baso % (Auto) 0.9 (0-2) % Neut # (Auto) 4200 (5854-3088) /uL Lymph # (Auto) 2200 (5702-5485) /uL [place] # (Auto) 900 (0-900) /uL Eos # (Auto) 0 (0-450) /uL Baso # (Auto) 100 (0-100) /uL PT 17.3 H (10.1-12.7) SECONDS INR 1.5 H (0.9-1.3) APTT 36 (26.4-36.2) SECONDS Sodium 137 (137-145) mmol/L Potassium 3.8 (3.4-5.1) mmol/L Chloride 100 (98-107) mmol/L Carbon Dioxide 26 (22-32) mmol/L BUN 19 H (7-17) mg/dL Creatinine 0.64 (0.52-1.04) mg/dL Estimated GFR > 60.0 (>60) mL/min BUN/Creatinine Ratio 29.7 H (6-22) Glucose 88 (80-110) mg/dL Calcium 9.8 (8.4-10.2) mg/dL Total Bilirubin 2.3 H (0.2-1.3) mg/dL AST 31 (14-36) IU/L ALT 25 (<35) IU/L Alkaline Phosphatase 140 H (38-126) U/L Total Protein 7.5 (6.3-8.2) g/dL Albumin 4.4 (3.5-5.0) g/dL Globulin 3.1 (1.7-4.1) g/dL Albumin/Globulin Ratio 1.4 (1.0-2.8) Lipase 122 (23-300) U/L Urine RBC (0-5/HPF) Urine WBC (0-5/HPF) Amorphous Sediment Urine Bacteria (None) Ur Culture Indicated? Ethyl Alcohol < 10 ( - 10) mg/dL Blood Type Antibody Screen 07/02/20 07/02/20 Range/Units 16:45 20:43 WBC (4.5-11.0) X10^3/uL RBC (4.0-5.2) X10^6/uL Hgb (12.0-16.0) g/dL Hct (36-46) % MCV (80-100) fL MCH (26-34) PG MCHC (30-36) % RDW (11.6-14.8) % Plt Count (150-400) X10^3/uL Neut % (Auto) (50-75) % Lymph % (Auto) (25-40) % [place] % (Auto) (3-14) % Eos % (Auto) (2-4) % Baso % (Auto) (0-2) % Neut # (Auto) (5490-5664) /uL Lymph # (Auto) (3521-0932) /uL [place] # (Auto) (0-900) /uL Eos # (Auto) (0-450) /uL Baso # (Auto) (0-100) /uL PT (10.1-12.7) SECONDS INR (0.9-1.3) APTT (26.4-36.2) SECONDS Sodium (137-145) mmol/L Potassium (3.4-5.1) mmol/L Chloride (98-107) mmol/L Carbon Dioxide (22-32) mmol/L BUN (7-17) mg/dL Creatinine (0.52-1.04) mg/dL Estimated GFR (>60) mL/min BUN/Creatinine Ratio (6-22) Glucose (80-110) mg/dL Calcium (8.4-10.2) mg/dL Total Bilirubin (0.2-1.3) mg/dL AST (14-36) IU/L ALT (<35) IU/L Alkaline Phosphatase (38-126) U/L Total Protein (6.3-8.2) g/dL Albumin (3.5-5.0) g/dL Globulin (1.7-4.1) g/dL Albumin/Globulin Ratio (1.0-2.8) Lipase (23-300) U/L Urine RBC None seen (0-5/HPF) Urine WBC None seen (0-5/HPF) Amorphous Sediment 3+ Urine Bacteria Many (>30) H (None) Ur Culture Indicated? Specimen cultured Ethyl Alcohol ( - 10) mg/dL Blood Type A Positive Antibody Screen Negative Urine Dip Bedside Urine Glucose Negative Bedside Urine Bilirubin - Negative Bedside Urine Ketone - Negative Urine Specific [place] 1.015 Bedside Urine Occult Blood - Negative Bedside Urine pH 8.0 Bedside Urine Protein - Negative Bedside Urine Urobilinogen - Negative Bedside Urine Nitrite + Positive Bedside Urine Leukocytes - Negative Esterase Imaging Data Extremity x-ray #1: Radiologist's Impression: [address] [id number] ReportSigned Patient: Neena Martell [facility]#: [id number]: 1936cct:[id number]/Sex: 85 / FDate of Service: 07/02/20Loc: EDAccession Number: [id number] Procedure: XR hand RT 2V Ordering Provider: Karthikeyan Rm D.O. PROCEDURE: XR HAND RT 2V INDICATIONS: post thumb MCP joint reduction TECHNIQUE: 2 views of the hand(s) acquired. COMPARISON: [facility], CR, XR HAND RT MIN 3V, 07/02/2020, 16:55. FINDINGS: Bones: There is interval reduction of earlier noted dislocation at 1st MCP joint as well as displaced and angulated 1st metacarpal base fracture with improved right thumb alignment. No new fracture or dislocation is seen. 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 No suspicious bony lesions. Soft tissues: No suspicious soft tissue calcifications. IMPRESSION: Interval reduction of earlier noted 1st MCP joint dislocation and angulated 1st metacarpal base fracture with improved right thumb alignment. Dictated by: Phillip Waite M.D. on 07/02/2020 at 20:41 Approved by: Phillip Waite M.D. on 07/02/2020 at 20:46 MDM Narrative Medical decision making narrative: Dr rm: Received turned over, reviewed patient's history and physical. Patient has a fracture of the proximal metacarpal of the right thumb and also had dislocation of the MCP joint of the same finger. Nerve block was performed. Dislocation was reduced easily with direct manipulation. Splint was placed as described above. Patient tolerated these procedures well. She does have a contusion on the left forehead. Rest of her CT scans to include her head and neck were unremarkable. Patient was given care instructions and return precautions and also follow-up instructions. Her family was at bedside for these discussions. She expressed understanding and agreement. Discharge Plan Departure Patient Disposition: Home Clinical Impression: Fracture dislocation of right thumb, Head injury Instructions: DI for a Hand Fracture, How to Take Care of Your Splint Activity Restrictions/Additional Instructions: The splint that was placed today needs to stay on in stay clean and stay dry. You can continue taking all of your medications as directed. Tomorrow contact the [facility] group at [phone]. Let them know that you were seen here in the emergency department and had a thumb fracture and dislocation and were placed in a splint and was told to contact them for a follow-up. Return to the emergency department for any new or worsening symptoms Prescriptions: No Action multivitamin [Multiple Vitamins] 1 EACH tablet 1 tab PO QDAY Qty: 0 RF: 0 triamterene-hydrochlorothiazid 37.5-25 mg tablet 1 tab PO QDAY Qty: 90 RF: 3 levothyroxine 88 mcg tablet 88 mcg PO QDAY Qty: 90 RF: 3 Myrbetriq 50 mg tablet extended release 24 hr 50 mg PO DAILY Qty: 90 RF: 1 magnesium oxide 400 mg Capsule 400 mg PO QMWF RF: 0 hydroxyurea 500 mg Capsule 500 mg PO DAILY Qty: 30 RF: 11 apixaban 5 mg tablet 5 mg PO BID Qty: 60 RF: 5 Referrals: Ivan Gurrola MD [Primary Care Provider] -
[2020-07-02] MEDS: LIDO 1%/SOD BICARB 8.4% (10ML) 10 ML SYRINGE INJ (19:55)
--- NOTE | 2020-07-02 19:57 | DI.RAD.S_ITS ---
PROCEDURE: XR HAND RT 2V INDICATIONS: post thumb MCP joint reduction TECHNIQUE: 2 views of the hand(s) acquired. COMPARISON: [facility], CR, XR HAND RT MIN 3V, 07/02/2020, 16:55. FINDINGS: Bones: There is interval reduction of earlier noted dislocation at 1st MCP joint as well as displaced and angulated 1st metacarpal base fracture with improved right thumb alignment. No new fracture or dislocation is seen. 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 No suspicious bony lesions. Soft tissues: No suspicious soft tissue calcifications. IMPRESSION: Interval reduction of earlier noted 1st MCP joint dislocation and angulated 1st metacarpal base fracture with improved right thumb alignment. Dictated by: Phillip Waite M.D. on 07/02/2020 at 20:41 Approved by: Phillip Waite M.D. on 07/02/2020 at 20:46
[2020-07-02 20:49] LABS: RBC Urine None Seen (0-5/HPF); WBC Urine None Seen (0-5/HPF)
[2020-07-02 21:12] LABS: Amorphous Sediment Urine 3+; Bacteria Urine Many (>30); Culture Indicated Urine Specimen Cultured
== END 2020-07-02 21:40 | disposition home or self-care (01) ==
PROVIDERS: Emergency Medicine; Emergency Provider Emergency Medicine; PCP Student in an Organized Health Care Education/Training Program
DX: S62.501A Fracture of unspecified phalanx of right thumb, initial encounter for closed fracture (principal); S09.90XA Unspecified injury of head, initial encounter; W18.30XA Fall on same level, unspecified, initial encounter; R51.9 Headache, unspecified; Z79.01 Long term (current) use of anticoagulants; E78.5 Hyperlipidemia, unspecified; I10 Essential (primary) hypertension; E03.9 Hypothyroidism, unspecified
CPT/HCPCS: 26742; 64450; 70450; 71045; 72125; 73120; 73130; 80053; 80320; 81003; 81015; 83690; 85025; 85610; 85730; 86850; 86900; 86901; 87077; 87086; 87186; 93005; 96374; 96375; 99284; J1170; J2405

== ENCOUNTER → 2021-01-31 11:53 | Outpatient (CLI) | payer MEDICARE, OTHER, SELFPAY ==
--- NOTE | 2021-01-31 11:55 | DI.US.S_ITS ---
PROCEDURE: US CAROTID DOPPLER BI INDICATIONS: TIA TECHNIQUE: Color and pulse Doppler interrogation was performed of both carotid systems, with image documentation and velocity measurements. COMPARISON: [facility], MR, STROKE PROTOCOL A, 03/14/2008, 9:05. [facility], CT, CT HEAD/BRAIN WO CON, 07/02/2020, 17:04. FINDINGS: Stenosis calculations are based on SRU (Society of Radiologists in Ultrasound) criteria. The flow velocities and the arterial waveforms are normal within both carotid arterial systems. Atherosclerotic plaque is seen on both sides, left worse than right. The estimated degree of internal carotid artery stenosis is less than 50%. Antegrade flow is confirmed within both vertebral arteries. IMPRESSION: No hemodynamically significant stenosis is seen. Atherosclerotic plaque is noted bilaterally. Dictated by: Sarthak Khalil M.D. on 01/31/2021 at 11:58 Approved by: Sarthak Khalil M.D. on 01/31/2021 at 11:59
== END ==
PROVIDERS: PCP Student in an Organized Health Care Education/Training Program; Referring Provider Student in an Organized Health Care Education/Training Program; Visit Provider Student in an Organized Health Care Education/Training Program
DX: G45.9 Transient cerebral ischemic attack, unspecified (principal)
CPT/HCPCS: 93880

== ENCOUNTER → 2021-06-04 10:34 | Outpatient (CLI) | payer MEDICARE, OTHER, SELFPAY ==
--- NOTE | 2021-06-04 | DI.MG.S_ITS ---
BILATERAL DIGITAL SCREENING MAMMOGRAM 3D/2D WITH CAD: 06/04/2021 CLINICAL: Routine screening. Baseline by default. Comparison is made to exam dated: 05/08/2004 [facility]. The tissue of both breasts is predominantly fatty. Current study was also evaluated with a Computer Aided Detection (CAD) system. There are benign vascular calcifications in both breasts. No significant masses, calcifications, or other findings are seen in either breast. There has been no significant interval change. IMPRESSION: BENIGN There is no mammographic evidence of malignancy. A 1 year screening mammogram is recommended. This exam was interpreted at Station ID: [id number]. NOTE: For mammograms, a report in lay terms will be sent to the patient. Approximately 15% of breast malignancies will not be visualized mammographically. In the management of a palpable breast mass, a negative mammogram must not discourage biopsy of a clinically suspicious lesion. Electronically Signed By: Herminio Morales acr/anita:06/04/2021 11:25:55 letter sent: Normal Exam ACR BI-RADS Category 2: Benign Finding(s) 3342F
== END ==
PROVIDERS: PCP Student in an Organized Health Care Education/Training Program; Referring Provider Student in an Organized Health Care Education/Training Program; Visit Provider Student in an Organized Health Care Education/Training Program
DX: Z12.31 Encounter for screening mammogram for malignant neoplasm of breast (principal)
CPT/HCPCS: 77063; 77067

== ENCOUNTER → 2021-09-05 10:36 | Outpatient (CLI) | payer MEDICARE, OTHER, SELFPAY ==
[2021-09-05 11:11] LABS: Ammonia (NH3) < 9 umol/L (9-30)
[2021-09-05 11:52] LABS: Alanine Aminotransferase 26 IU/L (<35); Albumin 4.4 g/dL (3.5-5.0); Albumin Globulin Ratio 1.6 (1.0-2.8); Alkaline Phosphatase 153 U/L (38-126); Aspartate Aminotransferase 34 IU/L (14-36); Bilirubin Total 3.3 mg/dL (0.2-1.3); Bilirubin Unconjugated 3.4 mg/dL (0.0-1.1); Globulin 2.8 g/dL (1.7-4.1); HEMOLYSIS < 15 (0-50); Total Protein 7.2 g/dL (6.3-8.2)
== END ==
PROVIDERS: PCP Student in an Organized Health Care Education/Training Program; Referring Provider Student in an Organized Health Care Education/Training Program; Visit Provider Student in an Organized Health Care Education/Training Program
DX: R17 Unspecified jaundice (principal)
CPT/HCPCS: 36415; 80076; 82140

== ENCOUNTER → 2021-12-19 11:54 | Outpatient (CLI) | payer MEDICARE, OTHER, SELFPAY ==
[2021-12-19 12:47] LABS: Add Manual Diff / Slide Review NO; Basophils Absolute Auto 100 /uL (0-100); Basophils Percent Auto 1.1 % (0-2); Eosinophils Absolute Auto 100 /uL (0-450); Eosinophils Percent Auto 0.9 % (2-4); Hematocrit 41.4 % (36-46); Hemoglobin 13.5 g/dL (12.0-16.0); Lymphocytes Absolute Auto 1100 /uL (1100-4500); Lymphocytes Percent Auto 17.6 % (25-40); Mean Corpuscular HGB Conc 32.6 % (30-36); Mean Corpuscular Hemoglobin 26.4 PG (26-34); Monocytes Absolute Auto 800 /uL (0-900); Monocytes Percent Auto 12.8 % (3-14); Neutrophils Absolute Auto 4300 /uL (1500-7000); Neutrophils Percent Auto 67.6 % (50-75); Red Blood Cell Count 5.11 X10^6/uL (4.0-5.2); Red Cell Distribution Width 16.3 % (11.6-14.8); White Blood Cell Count 6.4 X10^3/uL (4.5-11.0)
[2021-12-19 12:58] LABS: Platelet Count 124 X10^3/uL (150-400)
[2021-12-19 13:20] LABS: Alanine Aminotransferase 20 IU/L (<35); Albumin 4.1 g/dL (3.5-5.0); Albumin Globulin Ratio 1.5 (1.0-2.8); Alkaline Phosphatase 156 U/L (38-126); Aspartate Aminotransferase 30 IU/L (14-36); Bilirubin Total 2.4 mg/dL (0.2-1.3); Blood Urea Nitrogen 20 mg/dL (7-17); Calcium 9.3 mg/dL (8.4-10.2); Carbon Dioxide 27 mmol/L (22-32); Chloride 107 mmol/L (98-107); Estimated Glomerular Filt Rate > 60 mL/min (>60); Globulin 2.8 g/dL (1.7-4.1); Glucose 89 mg/dL (80-110); HEMOLYSIS 27 (0-50); Potassium 4.2 mmol/L (3.4-5.1); Sodium 142 mmol/L (137-145); Total Protein 6.9 g/dL (6.3-8.2)
[2021-12-19 13:28] LABS: Prealbumin 16.2 mg/dL (17.6-36.0)
== END ==
PROVIDERS: PCP Student in an Organized Health Care Education/Training Program; Referring Provider Student in an Organized Health Care Education/Training Program; Visit Provider Student in an Organized Health Care Education/Training Program
DX: D45 Polycythemia vera (principal); R18.8 Other ascites
CPT/HCPCS: 36415; 80053; 84134; 85025

== ENCOUNTER → 2021-12-19 12:20 | Outpatient (CLI) | payer MEDICARE, OTHER, SELFPAY ==
--- NOTE | 2021-12-19 12:21 | DI.CT.S_ITS ---
PROCEDURE: CT ABDOMEN PELVIS W CON INDICATIONS: New ascites. H/o venous thrombus, polycythemia vera TECHNIQUE: After the administration of oral and intravenous contrast, axial sections were acquired from the lung bases to the pubic symphysis. Coronal and sagittal reformats were performed. For radiation dose reduction, the following was used: automated exposure control, adjustment of mA and/or kV according to patient size. COMPARISON:[facility], CT, CT ABDOMEN PELVIS W CON, 08/10/2019, 13:36. FINDINGS: Image quality: Excellent. Lung bases: The lung bases are clear except for Dawit small 4 mm nodule in the right posterolateral lung base series 3, image 11, unchanged compared to 08/10/2019. Heart size is normal. Solid organs: Liver: The liver has an irregular contour suggestive of cirrhosis. There is a 4.0 x 2.8 cm cyst in the left lobe of the liver, unchanged. The portal vein is not opacified with contrast and is likely thrombosed. There is extensive collateral flow at the yadira hepatis with splenic and esophageal varices. These findings appear unchanged compared to 08/10/2019. Biliary: The gallbladder is contracted. No intrahepatic biliary ductal dilatation. Pancreas: The pancreas has no mass or ductal dilatation. There is no surrounding inflammation. Spleen: The spleen is enlarged. The spleen has an area of arterial enhancement laterally. Multiple hypodensities are unchanged. Adrenals: No hypertrophy or nodules. Kidneys: No obstructive calculus or hydronephrosis. No solid mass. No cystic mass. Peritoneum and bowel: The distal esophagus and stomach are normal. The small bowel has a normal caliber and appearance. The small bowel is well opacified throughout. No small bowel dilatation. There is diffuse mesenteric edema and small ascites. The large bowel has there is impaction of stool in the rectum measuring up to 6.8 cm. There is diverticulosis in the large bowel. . The appendix is not definitively visualized and therefore acute appendicitis cannot be excluded; however there are no secondary findings to suggest acute appendicitis. Nodes and vessels: No retroperitoneal or mesenteric adenopathy by size criteria. Aorta and inferior vena cava are normal in size. Miscellaneous: No abdominal wall mass or hernia. PELVIS: Genitourinary: The bladder has no wall thickening or mass. No bladder calcifications. Bones: Degenerative changes with no focal abnormality. Multilevel disc disease and facet arthrosis. No compression fracture. IMPRESSION: 1. 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 There is been cavernous transformation of the portal vein with extensive collaterals seen. 2. Interval development of ascites, likely due to portal venous hypertension. 3. Fecal impaction. 4. Stable nodule in the right lower lobe. Dictated by: Herminio Morales M.D. on 12/19/2021 at 16:41 Approved by: Herminio Morales M.D. on 12/19/2021 at 16:54
== END ==
PROVIDERS: PCP Student in an Organized Health Care Education/Training Program; Referring Provider Student in an Organized Health Care Education/Training Program; Visit Provider Student in an Organized Health Care Education/Training Program
DX: D45 Polycythemia vera (principal); R18.8 Other ascites; I81 Portal vein thrombosis; R16.1 Splenomegaly, not elsewhere classified; K56.41 Fecal impaction; R91.1 Solitary pulmonary nodule
CPT/HCPCS: 36415; 74177; 80053; 84134; 85025; Q9967

== ENCOUNTER → 2022-02-06 14:27 | Outpatient (CLI) | payer MEDICARE, OTHER, SELFPAY ==
[2022-02-06 17:13] LABS: BUN Creatinine Ratio 27.4 (6-22); Blood Urea Nitrogen 43 mg/dL (7-17); Calcium 9.6 mg/dL (8.4-10.2); Carbon Dioxide 23 mmol/L (22-32); Chloride 94 mmol/L (98-107); Estimated Glomerular Filt Rate 32 mL/min (>60); Glucose 102 mg/dL (80-110); HEMOLYSIS < 15 (0-50); Magnesium 2.1 mg/dL (1.6-2.3); Sodium 131 mmol/L (137-145)
[2022-02-06 17:20] LABS: Potassium 5.7 mmol/L (3.4-5.1)
== END ==
PROVIDERS: PCP Student in an Organized Health Care Education/Training Program; Referring Provider Student in an Organized Health Care Education/Training Program; Visit Provider Student in an Organized Health Care Education/Training Program
DX: R25.2 Cramp and spasm (principal); N17.9 Acute kidney failure, unspecified
CPT/HCPCS: 36415; 80048; 83735